=== PATIENT | male | born 1955 | race Caucasian/White ===

== ENCOUNTER 2019-12-24 11:56 | Emergency (ER) | payer BC ==
[~2019-12-24] VITALS: Ht 188 cm; Wt 79.4 kg
[~2019-12-24 11:56] MED LIST: AMLODIPINE BESY10 MG PO; ASPIRIN325 MG PO; COZAAR25 MG PO; DAILY MULTIPLE1 EACH PO; GLUCOSAMINE1000 MG PO; HYDROCHLOROTH12.5 MG PO; NIACIN500 M1 PO; OCULAR VITAMIN1 EACH PO; PRILOSEC20 MG PO; TRIAMTERENE-HC1 EAC2 PO
== END 2019-12-24 12:54 | disposition home or self-care (01) ==
LOC: ED 11:56
DX: Z00.00 Encounter for general adult medical examination without abnormal findings (principal); Z91.040 Latex allergy status; Z79.899 Other long term (current) drug therapy; Z79.82 Long term (current) use of aspirin
CPT/HCPCS: 99283

== ENCOUNTER 2020-02-16 10:40 | Day surgery (SDC) | payer BC ==
[~2020-02-16] VITALS: Ht 188 cm; Wt 78.0 kg
[~2020-02-16 10:40] MED LIST changes: +ALLOPURINOL300 MG PO
--- NOTE | 2020-02-16 12:52 | NUR ---
02/16/20 1252 Sheets,Tanya 1248 PT ARRIVED TO PACU ON 3L VIA MASK, RESP EVEN AND UNLABORED. VSS. PT DENIES PAIN AND NAUSEA, PT FALLS EASILY BACK TO SLEEP.
--- NOTE | 2020-02-22 10:23 | PATH ---
[facility] [address] [place], [place] [address] Signed SPECIMEN(S): A BONE MARROW - CORE SPECIMEN(S): B BONE MARROW - ASPIRATION SPECIMEN(S): C COMPREHENSIVE FLOW CYTOMETRY ONLY, BM EDTA ASP CLINICAL HISTORY: 64 year-old male with diagnosis of CLL, 01/21/2014. Developed pancytopenia on December 27, 2019. RX two doses of obinutuzumab with marked worsening of pancytopenia. C91.10 (chronic lymphocytic leukemia of B-cell type not having achieved remission) DIAGNOSIS SUMMARY: A. Peripheral blood, smear: - Mild normochromic, normocytic anemia. - Moderate leukopenia with absolute neutropenia and occasional atypical circulating lymphocytes. - Moderate thrombocytopenia. B. Bone marrow, aspirate, clot section, and core biopsy: - Chronic lymphocytic leukemia involving approximately 80% of marrow cellularity. - Hypercellular marrow (95%) with reduced trilineage hematopoiesis. - Adequate iron stores; no ring sideroblasts. - See Diagnostic Comment. DIAGNOSTIC COMMENT: The patient's history of chronic lymphocytic leukemia with worsening pancytopenia is noted. Evaluation of this bone marrow specimen demonstrates persistent chronic lymphocytic leukemia (CLL), involving approximately 80% of the cellularity of the marrow. No overt dysplasia or increase in blasts is identified. In addition, no evidence of large cell transformation is seen in the current biopsy material; however, clinical and radiologic correlation is recommended. CLL FISH and IGHV molecular studies are pending and results will be reported in an addendum. JCH:slh:C2NR PERIPHERAL BLOOD: HEMOGRAM ([facility], 02/16/2020): WBC 1.7 K/uL, RBC 4.38 M/uL, HGB 12.4 g/dL, HCT 37.3%, MCV 85.3 fL, MCH 28 pg, MCHC 33 g/dL, RDW 16.4%, PLT 95 K/uL. MANUAL DIFFERENTIAL COUNT (100 cells, performed by pathologist): Neutrophils 48%, lymphocytes 46%, monocytes 5%, basophils 1%. PATIENT NAME: NICOLE RAY PATHOLOGY DATE OF : 59 REPORT #: [id number] PHYSICIAN: BHAVESH BARAHONA PCP: CAMPBELL POLLARD MD REPORT IS CONFIDENTIAL AND NOT TO BE RELEASED WITHOUT AUTHORIZATION [facility] [address] [place], [place] [address] Signed The red cells are mildly decreased in number and are normochromic and normocytic. There is mild nonspecific anisopoikilocytosis with occasional ovalocytes and rare dacryocytes and microcytes seen. Polychromasia is not significantly increased. Leukocytes are reduced in number and include predominantly lymphocytes and neutrophils. Lymphocytes include a subset of intermediate-sized forms with coarsely clumped chromatin. Prolymphocytes are less than 5%. Neutrophils demonstrate normal granulation and lobation. A single circulating high N:C ratio cell with moderately fine chromatin, scant cytoplasm, and visible nucleoli is seen, which may possibly represent a rare blast. Platelets are moderately decreased in number and show normal morphology. BONE MARROW: BONE MARROW ASPIRATE: The bone marrow aspirate smears demonstrate abundant cellular spicules. Cellularity is composed predominantly of lymphocytes which range in size from small to large. The majority of lymphocytes are small to intermediate in size and show coarsely clumped chromatin with a scant rim of light blue cytoplasm. Maturing myeloids and erythroids are present in the background, although significantly reduced in number. The erythroids show generally round nuclear contours, although a few binucleate forms are present. Megakaryocytes are large and lobulated. Blasts are not increased. Scattered histiocytes are seen as well. MANUAL DIFFERENTIAL COUNT (200 cells): Blasts 0.5%, promyelocytes 0.5%, myelocytes 0.5%, erythroids 12.5%, lymphocytes 83.5%, monocytes 2.5%. BONE MARROW CORE BIOPSY AND ASPIRATE CLOT SECTION CELL BLOCK: The bone marrow core biopsy is markedly hypercellular for age (95%). Cellularity is composed predominantly of small to intermediate-sized lymphocytes with condensed chromatin, and scant cytoplasm. Scattered megakaryocytes are seen which show normal morphology. No significant clustering of megakaryocytes is appreciated. Maturing myeloids and erythroids are decreased in number. Sheets of large cells are not appreciated. Trabecular bone is normal. The bone marrow clot sections demonstrate several fragments of marrow that show similar findings as the core biopsy. SPECIAL STAINS (with adequate controls): - Iron stain (aspirate smear): Adequate iron stores; no ring sideroblasts identified. - Iron stain (block B1): Stainable iron is present; no ring sideroblasts identified. PATIENT NAME: NICOLE RAY PATHOLOGY DATE OF : 59 REPORT #: [id number] PHYSICIAN: BHAVESH PATHOLOGY PCP: CAMPBELL POLLARD MD REPORT IS CONFIDENTIAL AND NOT TO BE RELEASED WITHOUT AUTHORIZATION [address] [address] Signed IMMUNOHISTOCHEMICAL STAINS (block A1): - CD3: Highlights scattered small T-cells. - CD20: Some patchy weak staining seen, largely negative. - PAX5: Highlights numerous small to intermediate-sized B-cells, approximately 80% of marrow cellularity. - CD5: Coexpressed on lesional B-cells; also positive on T-cells. - Cyclin D1: Negative in cells of interest. - SOX-11: Negative in cells of interest. - CD23: Coexpressed on lesional B-cells. [facility] FLOW CYTOMETRY: Bone marrow, flow cytometry: - Abnormal kappa-restricted B-cell population expressing CD5. - No aberrant T-cell population detected. - No increase in blasts. - See Comment. COMMENT: Flow cytometry of this bone marrow specimen demonstrates an abnormal kappa-restricted B-cell population expressing CD5, dim CD19, dim to negative CD20, and CD23, while lacking expression of CD10 and FMC-7. These findings would support the diagnosis of a CD5 positive B-cell lymphoma, and the immunophenotype is compatible with chronic lymphocytic leukemia/small lymphocytic lymphoma (CLL/SLL). Full interpretation of these results requires correlation with morphologic and clinical findings. FLOW CYTOMETRY ANALYSIS: FLOW DIFFERENTIAL (% Total CD45 vs. SSC gating): Myeloid 6%; Lymphoid 88%; Monocyte 1%; Dim CD45/Blast: 0.4%. Cell Count: 6.2 x 10*3/uL. POPULATION ANALYSIS: BLASTS: Analysis of the dim CD45 gate demonstrates 0.4% myeloblasts by CD34/CD117. LYMPHOID CELLS: The lymphocyte gate comprises 88% of total events and includes 10% T-cells with a CD4:CD8 ratio of 2.9:1 and normal holbrook T-cell antigen expression. 88% of lymphocytes (77% of total events) are kappa-restricted B-cells expressing CD45 DIM, CD19 DIM, CD20 DIM-NEG, CD5 DIM, CD23 DIM-MOD, CD38 DIM (partial) and KAPPA DIM while negative for CD10 and FMC7. 62% of these CD5+/CD19+ B-cells co-express CD38. The remainders are NK-cells. PATIENT NAME: NICOLE RAY PATHOLOGY DATE OF : 59 REPORT #: [id number] PHYSICIAN: BHAVESH PATHOLOGY PCP: CAMPBELL POLLARD MD REPORT IS CONFIDENTIAL AND NOT TO BE RELEASED WITHOUT AUTHORIZATION [facility] [address] [place], [place] [address] Signed MYELOID CELLS: The myeloid population comprises 6% of the total events. No aberrant or immature immunophenotypic expression is detected. MONOCYTES: The monocyte population comprises 1% of the total events. Monocytes are not increased. No aberrant immunophenotypic expression is detected. PLASMA CELLS: A significant plasma cell population is not detected in the neg-dimCD45/CD38 screening gate. ANTIBODIES USED: KAPPA, LAMBDA, CD20, CD10, CD19, CD23, CD38, FMC7, CD16, CD56, CD8, CD5, CD2, CD4, CD7, CD3, CD14, CD33, CD13, HLADR, CD34, CD117, CD15, CD45: TOTAL ANTIBODIES USED: 24. DKW FINAL DIAGNOSIS PERFORMED BY: Shalini Man MD, Feb 18 2020 2:18PM FISH ANALYSIS: Pending, to be reported by addendum. MOLECULAR / PCR: Pending, to be reported by addendum. GROSS DESCRIPTION: Two specimens are received in two containers, labeled "DF." A. The specimen, labeled "DF, bone marrow core," is received in formalin and consists of a 1.0 x 0.2 x 0.2 cm, red-brown core of bone that is entirely submitted in (A1) for decalcification in Immunocal for an 1-1/2 hours. B. The specimen, labeled "DF, bone marrow clot," is received in formalin and consists of a 1.6 x 1.5 x 0.3 cm aggregate of red-brown clot material that is entirely submitted in (B1). AK (under the direct supervision of a pathologist) The Gross Description was prepared using a voice recognition system. The report was reviewed for accuracy; however, sound-alike word errors, addition and/or deletions may occur. If there is any question about this report, please contact Client Services. ADDITIONAL NOTES: Immunohistochemical and/or in situ hybridization studies were performed on this case with the appropriate positive controls that react as expected. This test was developed and its performance characteristics determined by [facility]. It has not been cleared or approved by the U.S. Food and Drug Administration. The FDA has determined that such clearance or approval is not PATIENT NAME: NICOLE RAY PATHOLOGY DATE OF : 59 REPORT #: [id number] PHYSICIAN: BHAVESH BARAHONA PCP: CAMPBELL POLLARD MD REPORT IS CONFIDENTIAL AND NOT TO BE RELEASED WITHOUT AUTHORIZATION [address] [address] Signed necessary. This test is used for clinical purposes. It should not be regarded as investigational or for research. [facility] is certified under the Clinical Laboratory Improvement Amendments of 1988 (CLIA) as qualified to perform high complexity clinical laboratory testing. In this case, certain antibodies were performed by both immunohistochemistry and flow cytometry analysis because flow cytometry analysis did not fully explain all the light microscopic findings. Immunohistochemistry aided in the analysis. Both methods are deemed medically necessary in this case. This test was developed and its performance characteristics determined by [facility]. It has not been cleared or approved by the US Food and Drug Administration. The FDA does not require this test to go through premarket FDA review. This test is used for clinical purposes. It should not be regarded as investigational or for research. This laboratory is certified under the Clinical Laboratory Improvement Amendments (CLIA) as qualified to perform high complexity clinical laboratory testing. PERFORMING LABORATORY: The professional interpretation was performed by [facility], [address] [place] [address] (Sybase Developer: Juan Mclaughlin D.O.; CLIA#: [id number]). Professional interpretation [place] [address] ([employer] Developer: Juan Mclaughlin D.O.; CLIA#: [id number]). IMAGES: [id number]: [id number] A: [id number] Diagnostician: Shalini Man MD Pathologist Electronically Signed 02/22/2020 Copies: ~ PATIENT NAME: NICOLE RAY PATHOLOGY DATE OF : 59 REPORT #: [id number] PHYSICIAN: BHAVESH PATHOLOGY PCP: CAMPBELL POLLARD MD REPORT IS CONFIDENTIAL AND NOT TO BE RELEASED WITHOUT AUTHORIZATION
== END 2020-02-16 14:09 | disposition home or self-care (01) ==
LOC: OPS 10:40 → DS 10:40 → OPS 12:00
PROVIDERS: Specialist
PROC: 079T3ZX Drainage of Bone Marrow, Percutaneous Approach, Diagnostic (ICD-10-PCS; 2020-02-16)
PROC: 07DR3ZX Extraction of Iliac Bone Marrow, Percutaneous Approach, Diagnostic (ICD-10-PCS; principal; 2020-02-16 12:00)
DX: C91.10 Chronic lymphocytic leukemia of B-cell type not having achieved remission (principal); D61.818 Other pancytopenia; I10 Essential (primary) hypertension; K21.9 Gastro-esophageal reflux disease without esophagitis; F41.9 Anxiety disorder, unspecified; Z90.49 Acquired absence of other specified parts of digestive tract; Z79.899 Other long term (current) drug therapy; Z79.82 Long term (current) use of aspirin; Z91.040 Latex allergy status
CPT/HCPCS: 85025; 99153; G0500; J2250; J3010; J7121

== ENCOUNTER 2020-03-18 08:47 | Inpatient (IN) | payer BC, OTHER ==
[~2020-03-18] VITALS: Ht 188 cm; Wt 78.0 kg
[~2020-03-18 08:47] MED LIST changes: +PRILOSEC OTC20 MG PO; -PRILOSEC20 MG PO; +VENCLEXTA100 MG PO
[2020-03-18] MEDS ORDERED: ACYCLOVIR800 MG PO (09:15)
[2020-03-18] MEDS ORDERED: CIPROFLOXACIN500 MG PO (09:16)
--- NOTE | 2020-03-18 12:30 | NUR ---
PT ARRIVED TO FLOOR. PT ON 2L NC AND SATING WELL ON THAT. PT HAS NO COMPLAINTS AT THIS TIME. PT COMPLIANT WITH CARE
--- NOTE | 2020-03-18 14:00 | NUR ---
IN PTS ROOM HANGING ANTIBIOTICS AND ATTEMPTED TO START ANOTHER IV, THIS RN MISED TWICE, BOTH ON THE PTS RIGHT ARM. PT TOLERATED WELL AND CONSENTED TO ANOTHER IV DUE TO THE EXISTING IV BEING LOCATED IN THE LEFT AC WHERE IT MAKES THE IV PUMP BEEP EVERY TIME HE BENDS HIS ARM
--- NOTE | 2020-03-18 15:15 | NUR ---
IN PTS ROOM TO REFILL PTS WATER CUP. PT ABLE TO PEE AND PROVIDE URINE SAMPLE AT THSI TIME TIME
--- NOTE | 2020-03-18 15:50 | NUR ---
PT APPEARS TO BE RESTING AT THIS TIME. RESPIRATIONS SUSTAINED FROM 25-35. MD AWARE OF RESPIRATORY RATE. PT DOES NOT APPEAR TO BE IN ANY DISTRESS, GOOD WAVE FORM NOTED ON TELEMETRY AT THIS TIME
--- NOTE | 2020-03-18 16:30 | NUR ---
ASSESSMENT DONE. PATIENT C/O FEELING SHORT OF BREATH. WORK OF BREATHING, SLIGHT STERNAL RETRACTIONS. CRACKLES NOTED IN RIGHT LOWER LOBE.
--- NOTE | 2020-03-18 17:00 | NUR ---
SECOND IV SIGHT STARTED BY SUPERVISIOR. IV ANTIBOTIC , IVF HUNG.
--- NOTE | 2020-03-18 18:08 | NUR ---
SAT UP IN BED TO TAKE SMALL AMOUNT OF DINNER. RT NOTIFIED FOR NEB TREATMENT.
--- NOTE | 2020-03-18 18:30 | NUR ---
DR. FLEMING UPDATED ON PT CONDITION. IS AWARE IF RESP RATE, WORK OF BREATHING. NO FUTHER ORDERS AT THIS TIME.
--- NOTE | 2020-03-18 19:05 | NUR ---
O2 SAT 88-92 WILL CONTINUE TO MONITOR. REPORT TO NEXT SHIFT. PATIENT HAS BEEN VERY TALKATIVE.
--- NOTE | 2020-03-18 20:12 | NUR ---
IN TO ASSESS PT, IS AWAKE AND ALERT. SATS 88-91 ON 3L NC, INC TO 4L. RR 24-30, SL LABORED. ABLE TO SPEAK IN COMPLETE SENTENCES. PT WILL NOTE IF SATS DEC ON MONITOR AND TAKE DEEP BREATHS.
--- NOTE | 2020-03-18 22:20 | NUR ---
RESTING. HAS HAD GOOD RESPONSE TO LASIX. 02 SATS 92-94% ON 4L NC AND RR26.
--- NOTE | 2020-03-18 23:22 | NUR ---
PT AWAKENED WHEN ABX HUNG. NO C/O.
--- NOTE | 2020-03-19 01:02 | NUR ---
SLEEPING OFF AND ON. OCC COUGH.
--- NOTE | 2020-03-19 02:21 | NUR ---
pt had an episode of coughing, non productive. SPO2 decreased to 86% on 4L. Increased O2-5L, after a few minutes pt SPO2 increased to 95-98%. O2 decreased to 4L. Spo2 currenlty 96% on 4L.
--- NOTE | 2020-03-19 03:08 | NUR ---
AWAKENED BY IV ALARM. T 100.3, GIVEN 650MG TYLENOL FOR TEMP AND GENERAL DISCOMFORT.
--- NOTE | 2020-03-19 05:09 | NUR ---
AWAKE COUGHING, GIVEN 5ML ROBITUSSIN.
--- NOTE | 2020-03-19 06:13 | NUR ---
SLEEPING OFF AND ON. COUGHING LESS SINCE WS GIVEN ROBITUSSIN.
--- NOTE | 2020-03-19 07:30 | NUR ---
REPORT RECIEVED. IS RESTING IN BED.
--- NOTE | 2020-03-19 07:50 | NUR ---
HAVING COUGHING SPELL, O2 SAT DOWN TO 84. OXYMASK AT 6 L APPLIED. ASSESSMENT DONE. TALKED WITH PATIENT ABOUT POC FOR DAY, INDICATES UNDERSTANDING.
--- NOTE | 2020-03-19 09:00 | NUR ---
BREAKFAST HELD AT THIS TIME PATIENT CHILLING, TEMP-99.6. REMAINS ON OXYMASK NOW AT [address] WARM BLANKETS APPLIED. DR. FLEMING HERE AND AWARE. ROUTINE MEDS GIVEN WELL TYLENOL 650 MG AND COUGH MEDICATION.
[2020-03-19] MEDS ORDERED: GAZYVA1000 MG/40 IV (09:45)
--- NOTE | 2020-03-19 09:50 | NUR ---
MED REC COMPLETE
--- NOTE | 2020-03-19 10:30 | NUR ---
SAT AT BED SIDE TO VOID. TOLERATED MOVEMENT WELL. THEN TO BED. SAT UP IN BED TO TAKE BREAKFAST. NOT CHILLING NOW. O2 VIA OXYMASK AT 4 L. WHEN EATING O2 AT 5 NC NC PLACED. O2 SATS-95. PATIENT REQUESTING OXYMASK FOR COMFORT.
--- NOTE | 2020-03-19 12:00 | NUR ---
ASSESSMENT DONE. WHEN SITTNG UP AT BEDSIDE, SPONGE BATH GIVEN, TOLERATED WELL. CONTINUES TO HAVE DRY NONPRODUCTIVE COUGH. VEERY TALKATIVE. TEMP 99.3 TO 99.6 TODAY. PATIENT IS SENSITIVE TO THE TEMP IN ROOM. IV PATENT. DENIES NAUSEA.
--- NOTE | 2020-03-19 12:35 | NUR ---
PT BECAME RESTLESS. WHEN THIS RN ENTERED NOTICED PT HAD BEEN INCONTIENT OF URINE. PT CLEANED UP CHANGED ATTENDS AND SHERWIN PAD. PT THEN STATED THAT HE NEEDED TO PEE. MARTÍNEZ RN ASSISTED PT TO USE URINAL AT THIS TIME. PT THEN COVERED UP, PT THEN BEGAN TRYING TO TAKE OFF SHEETS AGAIN BECOMING MORE AGITATED AND TRYING TO PUT HIS LEGS OVER THE BED RAILS. THIS RN GAVE PT 2MG PRN ATIVAN. PT COVERED UP AND APPEARS TO BE GOING BACK TO SLEEP, RESPIRATIONS NOTED AND O2 SATS HOLDING GREATER THAN 90%
--- NOTE | 2020-03-19 13:44 | NUR ---
PO COUGH MEDICATION GIVEN.
--- NOTE | 2020-03-19 14:00 | NUR ---
SITTING UP IN BED TO EAT LATE LUNCH. CHILLING AT TIMES. TEMP REMAINS 99.3 TO 99.6.
--- NOTE | 2020-03-19 15:30 | NUR ---
TYLENOL GIVEN FOR OVERALL COMFORT.
--- NOTE | 2020-03-19 16:00 | NUR ---
ASSESSMENT DONE. TEMP 101.2.
--- NOTE | 2020-03-19 16:20 | NUR ---
DR FLEMING UPDATED ON FEVER, BLOOD CULTURES ORDERED.
--- NOTE | 2020-03-19 18:00 | NUR ---
ATE SNACK. NO CHANGES. IVF PATENT.
--- NOTE | 2020-03-19 18:20 | NUR ---
COUGH MEDICATION GIVEN.
--- NOTE | 2020-03-19 21:14 | NUR ---
IN FOR ASSESSMENT. PT UP TO BATHROOM TO HAVE BOWEL MOVEMENT. KEPT [address], LUMA BEING UP WELL. TALKATIVE.
--- NOTE | 2020-03-19 22:16 | NUR ---
PT USES IS ON OWN. READY FOR SLEEP, GIVEN ROBITUSSIN PER REQUEST FOR COUGH.
--- NOTE | 2020-03-20 00:45 | NUR ---
SAT AT BEDSIDE TO VOID. RR DOES INC WITH EXERTION, COUGH ALSO INC WITH EXERTION. GIVEN COOL CLOTH FOR EYES. READY TO GO BACK TO SLEEP.
--- NOTE | 2020-03-20 02:23 | NUR ---
AWAKENED BY IV PUMP. STATES HAS BEEN SLEEEPING. GIVEN 5ML ROBITUSSIN FOR DRY COUGH.
--- NOTE | 2020-03-20 03:49 | NUR ---
TOOK OXYMASK OFF AND SATS SEP TO , REPLACED. CONT TO HAVE CRACKLES ABOUT 1/2 TO 2/3 UP ON R AND 1/2 UP L. CONT TO HAVE DRY COUGH. STATES NOT REALLY NAUSEATED BUT DOESN'T FEEL RIGHT. GIVEN CRACKERS.
--- NOTE | 2020-03-20 06:37 | NUR ---
SLEEPING OFF AND ON. REMIANS ON 5L OXYMASK.
--- NOTE | 2020-03-20 07:30 | NUR ---
REPORT RECIEVED. PATIENT IS RESTFUL IN BED.
--- NOTE | 2020-03-20 08:10 | NUR ---
AMBULATED TO BR TO HAVE BM, TO [facility] FOR BREAKFAST. DR. FLEMING HERE TO SEE PATIENT.
--- NOTE | 2020-03-20 09:00 | NUR ---
TOOK BREAKFAST WELL. VOIDING TO URINAL. LASIX 20 MG IV GIVEN EARLIER. TOOK PO MEDICATIONS W/O PROBLEMS.
--- NOTE | 2020-03-20 09:45 | NUR ---
SPOKE WITH PATIENT IN ROOM. PATIENT UP IN CHAIR. STATES HE HAS BEEN WALKING TO BATHROOM, STILL FEELS WEAK, BUT BETTER. HE PLANS TO RETURN HOME AT DISCHARGE. HE CAN GO STAY WITH FRIENDS IF NEEDED, BUT OTHERWISE LIVES ALONE. DENIES USING ANY DME NORMALLY. HE IS EMPLOYED, ALTHOUGH SINCE PANDEMIC HAS BEEN STAYING HOME DUE TO HIS CHRONIC MEDICAL ISSUES AND HAS JUST STARTED WORKING FROM HOME VIA COMPUTER. HE DENIES ANY PROBLEMS AFFORDING MEDICATIONS, FOOD OR UTILITIES. HE DRIVES AND FEELS SAFE TO RETURN HOME IF HE IS A "LITTLE STRONGER". CM WILL CONTINUE TO FOLLOW.
--- NOTE | 2020-03-20 11:44 | NUR ---
REMAINS IN CHAIR. DENEIS PROBLEMS. WATCHING TV. REMAINS ON O2 AT 2 L NC.
--- NOTE | 2020-03-20 12:00 | NUR ---
BACK TO BED. LESS SHORT OF BREATH WITH EXERTION TODAY.
--- NOTE | 2020-03-20 14:00 | NUR ---
LATE LUNCH ORDERED.
--- NOTE | 2020-03-20 14:01 | NUR ---
I AM FAMILIAR WITH THIS PT AND HE REQUESTED A VISIT. HE IS ALERT, ORIENTED AND SHARED ABOUT EVENTS THAT LED TO THIS ADMISSION. STATED HE IS FEELING MUCH BETTER, AND SLEPT FAIRLY WELL. IV ALARMS WENT OFF SEVERAL TIMES DURING VISIT- SEEMED TO ANNOY PT SOME. HAD GOOD DEBRIEFING MOMENT, PT REQUESTED PRAYER.
--- NOTE | 2020-03-20 14:57 | NUR ---
BACK TO BED AFTER AMBULATING TO BR TO HAVE ANOTHER LIQ STOOL. BACK/FACE WASHED. REFUSING LUNCH AT THIS TIME.
--- NOTE | 2020-03-20 18:17 | NUR ---
SITTING UP IN BED TO TAKE MILKSHAKE. STATES HE FEELS TIRED. LESS SHORT OF BREATH TODAY.
--- NOTE | 2020-03-20 19:30 | NUR ---
SATS DEC TO 88-89%, T 99.5 02 IN TO 3L OXYMASK PER MARIEL DURAN.
--- NOTE | 2020-03-20 21:05 | NUR ---
HAS BEEN RESTING SITTING UP IN BED. STATES DOESN'T FEEL IF HAVING GOOD AN EVENING MORINING IE TEMP GOING UP, EXPLAINED TEMPS FREQ GO UP THIS TIME OF DAY DUE TO CIRCADIAN RHYTHM AND ALSO CURRENT ILLNESS. UNDERSTANDS. TALKED ABOUT GROUPING MEDS AND CARE TO MAXIMIZE SLEEP. WILL GIVEN TYLEONOL AND ROBITUSSIN ABOUT 2200 FOR REST.
--- NOTE | 2020-03-20 21:57 | NUR ---
PT'S COUGH INCREASES WITH ACTIVITY. GIVEN ROBITUSSIN 5MG PO AND 650MG TYLENOL FOR GEN COMFORT. GETTING READY FOR SLEEP.
--- NOTE | 2020-03-20 23:21 | NUR ---
PT AWAKENED WITH NIGHT SWEAT, T NOW 98.4. VOIDED AND HAD INC COUGHING WITH MOVEMENT. SATS HAD SEP TO , 02 MASK OFF, BACK TO 90'S WITHIN 1-MIN OF REPLACEMENT.
--- NOTE | 2020-03-21 03:12 | NUR ---
SLEEPING OFF AND ON. HAVING EPISODES OF DRY COUGH. GIVEN GOBITUSSIN.
--- NOTE | 2020-03-21 05:15 | NUR ---
LAB IN TO DRAW BLOOD. NO CHANGE.
--- NOTE | 2020-03-21 06:22 | NUR ---
SLEEPING AT THIS TIME. RR 28-30 SAT 95% 3L OXYMASK.
--- NOTE | 2020-03-21 07:30 | NUR ---
REPORT RECIEVED. PATIENT STATES HE HAD A LONG NIGHT.
--- NOTE | 2020-03-21 08:00 | NUR ---
ASSESSMENT DONE. BREAKFAST ORDERED. DR. FLEMING HERE TO SEE PATIENT. PATIENT WILL BE TRANSFERRED TO MEDICAL FLOOR TODAY. TALKED WITH PATIENT ABOUT POC FOR DAY. IS UNDERSTANDING. IVF PATENT. O2 FROM OXYMASK AT 3 L TO NC AT L PER PATIENT R/O.
--- NOTE | 2020-03-21 09:30 | NUR ---
TOOK BREAKFAST WELL. IS STABLE ON FEET AMBULATED TO BR.
--- NOTE | 2020-03-21 09:40 | NUR ---
LARGE GREENISH LIQUID STOOL NOTED. PATIENT WAS CLEANING, BLOOD NOTED. DR. FLEMING NOTIFIED. NO EXTERNAL HEMORRHOID NOTED. DR. FLEMING OKAY WITH TRANSFER TO MEDICAL FLOOR.
--- NOTE | 2020-03-21 10:31 | NUR ---
NURSING SUPERVISIOR HERE TO PLACE 2 NEW IV SITES. IVF CONTINUE TO INFUSE AT 50 ML/HR.
--- NOTE | 2020-03-21 11:59 | NUR ---
NAPPING. NO DISTRESS NOTED. O2 VIA OXYMASK AT 3 L ON , PATIENT PREFERS OXYMASK TO NC FOR COMFORT. BOTH NC AT 3 L AND OXYMASK AT 3L, MAINTAIN SAT 91-96.
--- NOTE | 2020-03-21 13:30 | NUR ---
TOOK 80% OF LUNCH. HAS BEEN RESTFUL TODAY.
--- NOTE | 2020-03-21 14:15 | NUR ---
HAS BEEN VOIDING QS AMOUNT TOF URINE TO URINAL. RESTFUL.
--- NOTE | 2020-03-21 14:30 | NUR ---
Spoke with Bryan. He states he feels worse today than yesterday. C/o severe fatigue. States coughing spells cause fatigue. Remains on 02. Lives alone. States he is now where ready to go home. Let him know we are not at that point yet. He will go out to the floor today.
--- NOTE | 2020-03-21 15:30 | NUR ---
REPORT TO MED SURG.
--- NOTE | 2020-03-21 16:05 | NUR ---
to med-surg via chair.
--- NOTE | 2020-03-21 16:09 | NUR ---
PT ARRIVES VIA CHAIR FROM CCU. PT IS ORIENTED, ALERT, JOVIAL ABOUT TRANSFER. PT IS RECEIVING 3L O2 VIA OXYMASK. VITAL SIGNS STABLE, NO NOTABLE DISTRESS, PT ENCOURAGED TO USE CALL LIGHT.
--- NOTE | 2020-03-21 18:36 | NUR ---
PATIENT IN CHAIR WATCHING TV. WARM BLANKET GIVEN. CALL LIGHT IN REACH. NO FURTHER NEEDS AT THIS TIME.
--- NOTE | 2020-03-21 19:39 | NUR ---
REPORT RECEIVED FROM DAY SHIFT RN. PT SITTING IN RECLINER, ALERT AND ORIENTED. URINAL EMPTIED. O2 3L/NC IN PLACE. DENIES NEEDS AT THIS TIME. WHITE BOARD UPDATED. CALL LIGHT IN REACH.
--- NOTE | 2020-03-21 21:40 | NUR ---
EVENING ASSESSMENT COMPLETE. SCHEDULED MEDS ADMINISTERED. IV ABX INFUSING. PRN GIVEN FOR COUGH. PT UP TO BR WITH SBA TO DO PM CARES. REPORT HE IS FEELING LESS STEADY ON HIS FEET THIS EVENING. PT USING IS. O2 3L/NC IN PLACE, SPO2 92%. DENIES SOB. WARM BLANKET AND FRESH WATER PROVIDED.
--- NOTE | 2020-03-22 00:10 | NUR ---
PT RESTING IN BED WITH EYES CLOSED, NAD.
--- NOTE | 2020-03-22 01:56 | NUR ---
IV ABX INFUSING. PRN GIVEN FOR COUGH. SPO2 82-88% ON 3L/NC. FOR COMFORT PT WANTED TO SWITCH TO OXYMASK. O2 TITRATED TO 9L, SPO2 91%. HR LOW 90'S. RR 22.
--- NOTE | 2020-03-22 02:27 | NUR ---
OXYGEN TITRATED TO 7L/OXYMASK. SPO2 94%, HR 93. RR 22.
--- NOTE | 2020-03-22 03:41 | NUR ---
PT RESTING IN BED WITH EYES CLOSED. SPO2 93% ON 5L/OXYMASK. HR 90. RR 20.
--- NOTE | 2020-03-22 04:20 | NUR ---
PT TRANSITIONED TO NC PER PT REQUEST. O2 5L. SPO2 92%. RR EVEN AND UNLABORED.
--- NOTE | 2020-03-22 06:06 | NUR ---
PT SLEPT FAIR. ALERT AND ORIENTED. USES CALL LIGHT APPROPRIATELY. SBA. AFEBRILE. TITRATING OXYGEN TO KEEP O2 SATS >90%. PT LIKES TO SWITCH BETWEEN OXYMASK AND NC FOR COMFORT. CURRENTLY ON 4L/NC. NEUTROPENIC PRECAUTIONS/DIET. IV ABX. PO ANTIVIRALS. ONE LOOSE STOOL THIS SHIFT, NO BLOOD NOTED. DENIES PAIN OR NAUSEA.
--- NOTE | 2020-03-22 07:06 | NUR ---
RECIEVED REPORT FROM RENEE LEE. INTRODUCED SELF TO PATIENT, DENIES NEEDS AT THIS TIME. CALL LIGHT IN REACH, BED RAILS UP X2.
--- NOTE | 2020-03-22 09:01 | NUR ---
ASSESSMENT COMPLETED. NO COMPLAINTS OF PAIN AT THIS TIME. CALL LIGHT IN REACH. BED RAILS UP X2. RESP CURRENTLY EVEN AND UNLABORED, REMAINS ON O2 PER NC. O2 SATS 88%, PATIENT REQUEST INCREASE OF OXYGEN FOR COMFORT. O2 INCREASED TO 5L/MIN PER NC AT THIS TIME. DENIES OTHER NEEDS AT THIS TIME.
--- NOTE | 2020-03-22 09:55 | NUR ---
PATIENT RESTING IN BED, EYES CLOSED. VITALS AND I&OS DONE AND CHARTED. ICE WATER REFRESHED. PATIENT PLANS ON WALKING THE [place] SOON AND THEN WOULD LIKE TO SHOWER. CALL LIGHT IN REACH. NO OTHER NEEDS.
--- NOTE | 2020-03-22 10:08 | NUR ---
PT IS ALERT, ORIENTED AND WORKING TO STAY POSITIVE.WAITING ON BLOOD CULTURE RESULTS. PT STATES STAFF REINFORCE MOVING TO M/S IS POSITIVE, AND HE IS NOW COUGHING UP FLEM-RN'S ENCOURAGE HIM WITH THIS WELL. PT ADMITS THAT 2020 HAS BEEN HARD FOR HIM, REQUESTED PRAYER
--- NOTE | 2020-03-22 10:15 | NUR ---
AMBULATED APPROXIMATELY 400 FEET IN HALLWAY WITH THIS NURSE, STEADY GAIT NOTED WITH AMBULATION. OSYGEN ON 3L/MIN PER NC WHILE AMBULATING AND O2 SATS 91% WHILE AMBULATING. RETURNS TO BED WITH 3L/MIN PER NC ON. IV VANCOMYCIN CONTINUES INFUSING AT THIS TIME. DENIES OTHER NEEDS. CALL LIGHT IN REACH, BED RAILS UP X2.
--- NOTE | 2020-03-22 11:32 | NUR ---
Checked with patient to see if he would like toshower, states he would like to wait and continue napping. This UTILITY DRIVER emptied patients urinal. Call light in reach
--- NOTE | 2020-03-22 11:49 | NUR ---
REQUEST TO SWITCH OXYGEN TO OXYMASK. PLACED ON OXYMASK AT 3L/MIN PER REQUEST. DENIES OTHER NEEDS RIGHT NOW.
--- NOTE | 2020-03-22 13:52 | NUR ---
O2 REMAINS ON AT 3L/MIN PER NC. CONTINUOUS PULSE OX DC'D PER DR. SNYDER. PATIENT DENIES OTHER NEEDS. STATES HE WOULD LIKE TO REST FOR A WHILE AND SHOWER AROUND 1500. CALL LIGHT IN REACH, BED RAILS UP X2. ASSESSMENT COMPLETED, NO CHANGES FROM PREVIOUS ASSESSMENT.
--- NOTE | 2020-03-22 14:28 | NUR ---
PATIENT RESTING IN BED, EYES CLOSED. WOKE FOR VITALS AND TO SPEAK TO DIETARY(WILL ORDER SUPPER LATER) REQUESTED THERMOSTAT BE TURNED DOWN A NOTCH. VITALS AND I&OS CHARTED. CALL LIGHT IN REACH. PATIENT RESTING WITH EYES CLOSED AGAIN.
--- NOTE | 2020-03-22 14:35 | NUR ---
REVCEIVED REPORT FROM SHANIA DURAN. PT APPEARS TO BE RESTING, BUT AWAKES WHEN THIS RN SAYS HIS NAME. PT IS REQUESTING A SHOWER AT SOME POINT THIS AFTERNOON
--- NOTE | 2020-03-22 15:06 | NUR ---
PER PT REQUEST THIS RN PROVIDED PT WITH ROBITUSSIN FOR PTS COUGH.
--- NOTE | 2020-03-22 16:00 | NUR ---
1PA PATIENT TO BATHROOM USING FWW. THIS PRACTICAL NURSING INSTRUCTOR WRAPPED BOTH IV SITES FOR PATIENT TO SHOWER. SHOWERIGN INDEPENDENTLY, WILL CALL IF ASSISTANCE IS NEEDED. O2 WAS BUMPED UP TO 4L FOR SHOWER. LINENS CHANGED, GARBAGE EMPTIED, ROOM TIDIED.
--- NOTE | 2020-03-22 16:18 | NUR ---
Spoke rosana Salazar. He states he is really not feeling well. He continues with [address] Has questions regarding notary and completion of will which includes medical directive. Informed staff are unable to sign as witnesses. He will need to complete this outside of the hospital. Discussed 02 and may need to go home with 02. He states he is able to pay, if he does not qualify for home o2.
--- NOTE | 2020-03-22 17:16 | NUR ---
PATIENT SITTING UP IN CHAIR, ORDERED DINNER. HAPPY TO BE OFF NUTROPENIC DIET. VITALS AND I&OS DONE AND CHARTED. CALL LIGHT IN REACH. NO OTHER NEEDS.
--- NOTE | 2020-03-22 17:48 | NUR ---
PT PUT CARDIAC SURGEON LIGHT TO ALERT THIS RN THAT HE WANTED TO HAVE THIS RN TO LOOK AT HIS RIGH IV SITE. WHEN THIS RN INSPECTED SITE THIS RN DID NOT NOTICE ANY PUFFINESS OR REDNESS AT INSERTION SITE. THIS RN FLUSHED IV AND NO BLEB SHOWED AND FLUSHED WELL. DISCUSSED WITH PT TO NOTIFY THIS RN IF IT STARTS TO GET RED. THIS RN SLOWED DOWN THE RATE OF VANCO AT THIS TIME
--- NOTE | 2020-03-22 19:15 | NUR ---
SHIFT REPORT RECIEVED FROM DEANNE DURAN. PT RESTING IN BED. NC@ 2L, PT DENIES SOB. NO OTHER NEEDS AT THIS TIME. CALL LIGHT IN REACH.
--- NOTE | 2020-03-22 22:32 | NUR ---
ASSESSMENT, VS AND I&O COMPLETED. LUNGS DIMINISHED IN LOWER LOBES, CLEAR IN UPPER LOBES. IV WNL, CDI, FLUSHED WELL. SCHEDULED MEDS PROVIDED. SPO2 88%, NC MOVED TO 4L FROM 3L. BOWEL TONES ACTIVE. NO EDEMA NOTED. NO OTHER NEEDS AT THIS TIME. CALL LIGHT IN REACH.
--- NOTE | 2020-03-22 23:09 | NUR ---
PT ORAL TEMP 99.9f, PRN FEVER MED PROVIDED. ICE WATER PROVIDED. PT EDUCATED ON USE OF I.S., PT DECLINES TO USE "IT MAKES ME COUGH", "NOT UP TO IT". IV MEDS INFUSING PER ORDER. NO OTHER NEEDS. CALL LIGHT IN REACH.
--- NOTE | 2020-03-23 01:20 | NUR ---
SCHEDULED MED PROVIDED. NO OTHER NEEDS. PT RESTING IN BED, EYES CLOSED. NC@4L. CALL LIGHT IN REACH.
--- NOTE | 2020-03-23 03:00 | NUR ---
PT RESTING IN BED, EYES CLOSED. RR EVEN, UNLABORED. SKIN WPD. PT WAKES WHEN RN ENTERS ROOM. DECLINES VITALS TO CHECK TEMP. NC @ 3L. NO OTHER NEEDS. CALL LIGHT IN REACH.
--- NOTE | 2020-03-23 06:13 | NUR ---
SCHEDULED MED PROVIDED. ASSESSMENT, VS AND I&O COMPLETED. PT APPEARS ANXIOUS. SPO2 88% ON 3L, NC MOVED TO 4L THEN 5L TO GET TO 91%. LUNGS CLEAR IN UPPER LOBES AND DIMINISHED IN LOWER LOBES. ORAL TEMP 100.9f, PRN FEVER MED PROVIDED. PT OFFERED BREATHING TX BY RT, DECLINES SAYING "IT DOESN'T DO ANYTHING." IV MEDS INFUSING PER ORDER. IV WNL, FLUSHED WELL. HOB ELEVATED. PT PLACED ON OXYMASK AT 5L, SPO2 MAINTAINS At 91%. RN WILL NOTIFY RT OF MASK AND O2 CHANGES, LUNGS SOUNDS. NO OTHER NEEDS. CALL LIGHT IN REACH.
--- NOTE | 2020-03-23 07:30 | NUR ---
BEDSIDE REPORT.. PT RESTING IN BED EYES CLOSED, ON OXYMASK. RR EVEN, NO DISTRESS NOTED. HE APPEARS TO BE SLEEPING.
--- NOTE | 2020-03-23 08:49 | NUR ---
PT UP TO RECLINER USING I.S., AM MED PASS COMPLETE.
--- NOTE | 2020-03-23 10:10 | NUR ---
In and spoke with Martin. 02 qualifier was completed this am. He plans on discharging and then going to a [facility] appt with Dr. Avila prior to going home. Discussed 02 and I will send the rx to [facility]. Updated most insurance will pay for 02 if diagnoses is pneumonia. Undstanding stated. I will write his cell phone number on fax sheet for [facility] to contact for payment and set up a delivery time as pt lives alone. He is in agreement with this. Chart notes, face sheet, 02 qualifier faxed to [facility]. Called and updated Milton to pt's schedule. She suggests pt come to their office. Updated pt has CLL and should not go anywhere but to 's appts. She will call pt.
--- NOTE | 2020-03-23 11:15 | NUR ---
VANCO INFUSION COMPLETE, PT S/L, PT REQUEST TO REST IN BED FOR A WHILE SBA PT TRANSFERED FROM RECLINER TO BED.
--- NOTE | 2020-03-23 11:25 | NUR ---
NOTIFIED OF URINE OUT PUT DECREASED OVER THE PAST 4 HOURS FROM OVER A 1L AT 0600 TO 200ML AT 1000.
--- NOTE | 2020-03-23 11:35 | NUR ---
THIS MORNING SET PATIENT UP FOR A SHOWER. NOW HE IS DECIDING IF HE PLANS ON STAYING OR NOT TO SEE IF HE WILL TAKE A SHOWER OR NOT. PATIENT IS USING HIS IS MACHINE. PATIENT WAS SITTING UP IN HIS CHAIR BUT NOW HE IS IN BED.
--- NOTE | 2020-03-23 13:30 | NUR ---
spoke with Martin, he has been speaking with [facility]. Has decided to not go home today as he ran a fever last night and has some sob.
--- NOTE | 2020-03-23 14:17 | NUR ---
PT SITTING IN CHAIR-ALERT AND ORIENTED. RENEE NEAL IN CHECKING PTS' TEMP AND PT INFERRED THAT IT HAD BEEN UP AND DOWN MOST OF NIGHT. VAL ALSO MENTIONED THAT DR SNYDER WAS COMING IN SHORTLY. HAD GOOD INTERACTION WITH PT, ADMITTED THE DIFFICULTY HE IS HAVING FEELING VERY ALONE. ACCEPTING HE HAS NO FAMILY NEAR, AND THAT HE HAS ALWAYS FELT HE COULD CARE FOR HIMSELF. DIFFICULT FOR HIM TO FEEL DEPENDANT. HAD POSITIVE DEBRIEFING, PT REQUESTED PRAYER AND ACCEPTED N.PAPER.
--- NOTE | 2020-03-23 15:58 | NUR ---
ASSESSMENT COMPLETED. IV SITE INFILTRATED, NEW IV STARTED. STATES HE WOULD LIKE TO WALK IN [place] THIS AFTERNOON. DENIES OTHER NEEDS AT THIS TIME. CALL LIGHT IN REACH, BED RAILS UP X2.
--- NOTE | 2020-03-23 19:33 | NUR ---
Up to br, tolareated well, back to chair, legs elevated, O2 2L NC in place, no sob. 2 sl L arm. Alyssa with assessment. no c/o adverse reaction to abx, tolerating fluids well
--- NOTE | 2020-03-23 22:08 | NUR ---
c/o 10/22 generalized pain, medicated with Tylenol 650mg po. Up in bed watchingt v, moist productive cough of white clear phlegm
--- NOTE | 2020-03-23 22:45 | NUR ---
PER PT REQUEST I UNPLUGGED HIS PHONE FROM THE WALL AND GAVE IT TO HIM. HE NEEDS NOTHING MORE AT THIS TIME.
--- NOTE | 2020-03-24 00:11 | NUR ---
RESATING, NO C/O ADVERSER EACTION TO ABX, FLUIDS AND CALL LIGHT AT [facility]
--- NOTE | 2020-03-24 03:31 | NUR ---
C/O COUGHING, MEDICATED WITH COUGH SYRUP, HOB ELEVATED, O2 2L NC IN PLACE VIA OXYMASK AT HIS REQUESTS AT THIS TIME. TOLERATING FLUIDS WELL, VOIDING LARGE AMOUNTS OF YELLOW URINE USING URINAL. NO C/O APIN
--- NOTE | 2020-03-24 04:51 | NUR ---
PT HAS SLEPT OFF AND ON THIS SHIFT. WEARING O2 2L NC WHEN AWAKE AND OXYMASK AT 2L WHEN IN BED, LUNGS WITH CRACKLES MORE ON RIGHT THAN LET. C/O SOB WITH EXERTION X1. IN CHAIR MOST OF THIS SHIFT. TRANSFERS SELF IN ROOM. MOIST PRODUCTIVE COUGH OF CLEAR PHLEGM, WAS MEDICATED X2 WITH COUGH SYRUP WITH GOOD TO FAIR RESULTS. 2 SL PATENT. NO C/O ADVERSER EACTION TO IV ABX. TOLERATING WELL, AWARE OF 0830 LABS AND VANCO [facility]. TOLERATING DIET WELL, NO N/V, NO FEVER. COOP, CALL LIGHT AT BEDSIDE, IS AT BEDSIDE. CONTINUE TO ENCOURAGE USAGE.
--- NOTE | 2020-03-24 07:28 | NUR ---
RECEIVED REPORT FROM GRETA DURAN. PT APPEARS TO BE RESTING AT THIS TIME WITH RESPIRATIONS NOTED
--- NOTE | 2020-03-24 08:18 | NUR ---
ANSWERED PATIENT'S CALL LIGHT. HE WANTED TO GET UP AND SIT IN THE CHAIR FOR BREAKFAST. PATIENT IS INDEPENDENT. PATIENT IS EATING BREAKFAST. ARE PLAN IS TO GET HIM INTO THE SHOWER TODAY AND GO FOR A WALK. YESTERDAY HE DID THREE LAPS AROUND MED SURG. WITH ME.
--- NOTE | 2020-03-24 10:00 | NUR ---
Spoke with Martin. He plans on discharging today after lunch. Denies needs. States his neighbor will help him if needed. Called and confirmed oxygen will be delivered today by [facility]. Milton states Martin called them yesterday and will call them when he dc today so their regional refrigerated cdl truck driver can meet him. Phone for [facility] given to Martin to call on dc today.
[2020-03-24] MEDS ORDERED: MONODOX100 MG PO (11:15)
[2020-03-24] MEDS ORDERED: CEFPODOXIME PR200 MG PO (11:18)
--- NOTE | 2020-03-24 11:22 | NUR ---
PT ALERT, ORIENTED AND SITTING IN CHAIR WATCHING TV. MENTIONED HE HAD A BETTER NIGHT-NOT STELLAR BUT BETTER THAN NIGHT BEFORE. PT POSITIVE, THANKED ME FOR CHECKING IN. GAVE BLESSING
--- NOTE | 2020-03-24 11:59 | NUR ---
PATIENT WALKED 1 LAP AROUND [facility] WITH [place] AND THE OTHER TWO LAPS AROUND MED [facility] WITH . PATIENT IS NOW SITTING UP IN HIS CHAIR EATING HIS LUNCH.
== END 2020-03-24 13:35 | disposition home or self-care (01) | DRG 177 ==
LOC: ED 08:47 → CCU 11:58 → MS 03-21 15:50
PROVIDERS: ADMIT Internal Medicine
DX: J15.6 Pneumonia due to other Gram-negative bacteria (principal); J96.01 Acute respiratory failure with hypoxia; C91.10 Chronic lymphocytic leukemia of B-cell type not having achieved remission; J16.8 Pneumonia due to other specified infectious organisms; D70.9 Neutropenia, unspecified; R50.81 Fever presenting with conditions classified elsewhere; Z20.828 Contact with and (suspected) exposure to other viral communicable diseases; I10 Essential (primary) hypertension; E87.70 Fluid overload, unspecified; E79.0 Hyperuricemia without signs of inflammatory arthritis and tophaceous disease; Z91.040 Latex allergy status; Z79.82 Long term (current) use of aspirin; Z79.899 Other long term (current) drug therapy
CPT/HCPCS: 36415; 71045; 71046; 80048; 80053; 80202; 81001; 83605; 83735; 83880; 84100; 85025; 85610; 86850; 86900; 86901; 87040; 94640; 94760; 94761; 99284-25; J0456; J0692; J1447; J1650; J1940; J2543; J3370; J3480; J7030; J7050; J7060; U0002

== ENCOUNTER 2020-05-05 16:09 | Emergency (ER) | payer BC ==
[~2020-05-05] VITALS: Ht 188 cm; Wt 78.0 kg
[~2020-05-05 16:09] MED LIST changes: +ACYCLOVIR800 MG PO; +CEFPODOXIME PR200 MG PO; +CIPROFLOXACIN500 MG PO; +GAZYVA1000 MG/40 IV; +MONODOX100 MG PO
[2020-05-05] MEDS ORDERED: GAZYVA1000 MG/40 IV (16:22)
[2020-05-05] MEDS ORDERED: VENCLEXTA STAR1 EACH PO (16:23)
[2020-05-05] MEDS ORDERED: VENCLEXTA100 MG PO (16:24)
== END 2020-05-05 18:30 | disposition home or self-care (01) ==
LOC: ED 16:09
DX: R05 Cough (principal); Z91.040 Latex allergy status; Z79.899 Other long term (current) drug therapy
CPT/HCPCS: 71045; 99283-25

== ENCOUNTER 2020-06-26 15:18 | Emergency (ER) | payer BC ==
[~2020-06-26] VITALS: Ht 188 cm; Wt 78.0 kg
[~2020-06-26 15:18] MED LIST changes: +VENCLEXTA STAR1 EACH PO
[2020-06-26] MEDS ORDERED: BACTRIM DS TAB1 EACH PO (15:43)
== END 2020-06-26 19:16 | disposition home or self-care (01) ==
LOC: ED 15:18
DX: L03.116 Cellulitis of left lower limb (principal); Z91.040 Latex allergy status; Z79.899 Other long term (current) drug therapy; Z79.82 Long term (current) use of aspirin
CPT/HCPCS: 73630; 80053; 85025; 96365; 99283-25; J3370; J7060

== ENCOUNTER 2020-07-12 10:57 | Day surgery (SDC) | payer BC ==
[~2020-07-12] VITALS: Ht 188 cm; Wt 82.2 kg
[~2020-07-12 10:57] MED LIST changes: +BACTRIM DS TAB1 EACH PO
[2020-07-12] MEDS ORDERED: MUPIROCIN22 GM TOP (11:26)
[2020-07-12] MEDS ORDERED: DOXYCYCLINE HY100 MG PO (11:27)
[2020-07-12] MEDS ORDERED: GAZYVA1000 MG/40 IV (11:29)
[2020-07-12] MEDS ORDERED: PRILOSEC OTC20 MG PO (11:30)
--- NOTE | 2020-07-12 12:35 | NUR ---
07/12/20 1235 Guanakito Rodriguez REORIENTED TO TIME AND SITUATION ON ENTRY TO PACU. FALLS ASLEEP EASILY.
--- NOTE | 2020-07-19 13:27 | PATH ---
[facility] [address] [place], [place] [address] Signed THIS IS AN ADDENDUM REPORT SPECIMEN(S): A BONE MARROW - CORE SPECIMEN(S): B BONE MARROW - ASPIRATION SPECIMEN(S): C COMP FLOW CYTOMETRY, BM EDTA CLINICAL HISTORY: This is a 81-year-old man with CLL. Please evaluate for MRD after a course of treatment. C91.10 (chronic lymphocytic leukemia of B-cell type not having achieved remission) DIAGNOSIS SUMMARY: A. Peripheral blood, smear: - Mild leukopenia. - Mildly increased RBC count with microcytic, normochromic erythrocytes. B. Bone marrow, aspirate, clot section, and core biopsy: - Chronic lymphocytic leukemia, involving approximately 5% of marrow cellularity. - Normocellular marrow (30%) with trilineage hematopoiesis. - See Diagnostic Comment. DIAGNOSTIC COMMENT: Evaluation of this bone marrow biopsy demonstrates residual chronic lymphocytic leukemia (CLL), involving approximately 5% of marrow cellularity. No evidence of large cell transformation is seen. Prior CLL FISH panel was performed ([id number]), and showed normal results. Karyotype studies are pending and results will be reported in an addendum. As of note, while there is no anemia, the red cells are microcytic, and iron studies performed on the aspirate smear and clot section demonstrate absent stainable iron. Correlation with iron studies may be warranted to fully exclude an early component of iron deficiency. JC:caw:C1NR PERIPHERAL BLOOD: HEMOGRAM (07/12/2020): WBC 3.8 K/uL, RBC 5.89 M/uL, HGB 14.3 g/dL, HCT 44.0%, MCV 74.7 fL, MCH 24 pg, MCHC 33 g/dL, RDW 14.4%, PLT 244 K/uL. MANUAL DIFFERENTIAL COUNT (100 cells, performed by a pathologist): Segmented neutrophils 46%, lymphocytes 35%, monocytes 18%, basophils 1%. The red cells are slightly increased in number and are microcytic and normochromic. Anisocytosis is not prominent. Poikilocytosis is mild with a few scattered ovalocytes seen. Polychromasia is not PATIENT NAME: NICOLE RAY PATHOLOGY DATE OF : 59 REPORT #: [id number] PHYSICIAN: BHAVESH PATHOLOGY PCP: CAMPBELL POLLARD MD REPORT IS CONFIDENTIAL AND NOT TO BE RELEASED WITHOUT AUTHORIZATION [facility] [address] [place], [place] [address] Signed significantly increased. Leukocytes are mildly reduced in number. No significant dysplastic features are seen in the neutrophils. Circulating blasts are not identified. Lymphocytes include small mature lymphocytes and large granular lymphocytes. Platelets are normal in number and demonstrate unremarkable morphology. BONE MARROW: BONE MARROW ASPIRATE: The bone marrow aspirate smears demonstrate abundant cellular spicules. Myeloids are present in adequate number and show full-spectrum maturation. Erythroids are also present in adequate number and show full-spectrum maturation. No dysplastic features are appreciated. A few scattered small lymphocytes and plasma cells are seen, but do not appear significantly increased. Megakaryocytes are present in adequate number and show unremarkable morphology. MANUAL DIFFERENTIAL COUNT (200 cells): Blasts 0.5%, promyelocytes 2%, myelocytes 15%, metamyelocytes 12%, segs/bands 17.5%, erythroids 40.5%, lymphocytes 8%, plasma cells 0.5%, monocytes 2%, eosinophils 2%. BONE MARROW CORE BIOPSY AND ASPIRATE CLOT SECTION CELL BLOCK: The bone marrow core biopsy demonstrates a variable cellularity, ranging from less than 5% focally to approximately 40%, with an average overall cellularity of 30%, which is normocellular for age. The estimated M:E ratio is approximately 2:1. Both myeloids and erythroids demonstrate full-spectrum maturation. Blasts are not increased. Megakaryocytes are seen distributed throughout the marrow space and show generally large lobulated nuclei without atypical features noted. A few scattered small to intermediate size lymphoid aggregates composed of small mature lymphocytes are seen. Sheets of large cells are not appreciated. Trabecular bone is normal. The bone marrow clot sections demonstrate a few small fragments of marrow showing trilineage hematopoiesis. SPECIAL STAINS (with adequate controls): - Iron stain (aspirate smear): No definite specific staining seen ; no ring sideroblasts. - Iron stain (block B1): No definite stainable iron detected; no ring sideroblasts. IMMUNOHISTOCHEMICAL STAINS (block A1): - CD3: Positive in scattered small T-cells, and subset of lymphocytes in lymphoid aggregates. - PAX-5: Positive in many of the cells in the lymphoid aggregates, small in PATIENT NAME: NICOLE RAY PATHOLOGY DATE OF : 59 REPORT #: [id number] PHYSICIAN: BHAVESH BARAHONA PCP: CAMPBELL POLLARD MD REPORT IS CONFIDENTIAL AND NOT TO BE RELEASED WITHOUT AUTHORIZATION [address] [address] Signed size. - CD5: Co-expressed on lesional B-cells. - CD23: Co-expressed on lesional B-cells. - LEF-1: Positive on lesional B-cells. - Cyclin D1: Negative in cells of interest. JCH:caw FLOW CYTOMETRY: Bone marrow, flow cytometry: - Small abnormal kappa-restricted B-cell population expressing CD5 (less than 1% of all events, 3% of lymphocytes). - See Comment. COMMENT: Flow cytometry of this bone marrow specimen demonstrates a small abnormal kappa-restricted B-cell population (less than 1% of all events, 3% of lymphocytes) expressing CD5 and CD23 compatible with the patient's history of chronic lymphocytic leukemia. No increase in blasts is seen. Full interpretation of these results requires correlation with morphologic and clinical findings. FLOW CYTOMETRY ANALYSIS: FLOW DIFFERENTIAL (% Total CD45 vs. SSC gating): Myeloid 78%; Lymphoid 10%; Monocyte 4%; Dim CD45/Blast: 1.4%. Cell Count: 4.9 x 10*3/uL. POPULATION ANALYSIS: BLASTS: Analysis of the dim CD45 gate demonstrates 1% myeloblasts by CD34/CD117. LYMPHOID CELLS: The lymphocyte gate comprises 10% of total events and includes 86% T-cells with a CD4:CD8 ratio of 1.2:1. A T-cell subset is detected (10% of lymphocytes, 1% of total events) demonstrating co-expression of CD3 and CD56. 3% of lymphocytes (less than 1% of total events) are kappa-restricted B-cells expressing CD45 MOD, CD19 DIM, CD20 DIM-NEG, CD5 MOD, CD23 DIM-MOD, CD38 DIM (partial), and KAPPA DIM while negative for CD10 and FMC7. 35% of these CD5+/CD19+ B-cells co-express CD38. The remainders are NK-cells. MYELOID CELLS: The myeloid population comprises 78% of the total events. No aberrant or immature immunophenotypic expression is detected. MONOCYTES: The monocyte population comprises 4% of the total events. Monocytes are not increased. No aberrant immunophenotypic expression is detected. PLASMA CELLS: 0.1% plasma cells are detected in the screening gate neg-dimCD45/CD38. Plasma cells are CD45 dim and positive for CD19. ANTIBODIES USED: PATIENT NAME: NICOLE RAY PATHOLOGY DATE OF : 59 REPORT #: [id number] PHYSICIAN: BHAVESH BARAHONA PCP: CAMPBELL POLLARD MD REPORT IS CONFIDENTIAL AND NOT TO BE RELEASED WITHOUT AUTHORIZATION [facility] [address] [place], [place] [address] Signed KAPPA, LAMBDA, CD20, CD10, CD19, CD23, CD38, FMC7, CD16, CD56, CD8, CD5, CD2, CD4, CD7, CD3, CD14, CD33, CD13, HLADR, CD34, CD117, CD15, CD45: TOTAL ANTIBODIES USED: 24. JNB/TCS FINAL DIAGNOSIS PERFORMED BY: Shalini Man MD, Jul 13 2020 10:49AM CYTOGENETICS: Pending, to be reported by addendum. GROSS DESCRIPTION: A. The specimen, labeled "Feil, bone core," is received in formalin and consists of a 2.1 cm poe trabecular bone core. It is submitted in cassette A1, following decalcification in Immunocal for 1.5 hours. B. The specimen, labeled "Feil clot," is received in formalin and consists of a 1.4 x 1.3 x 0.3 cm aggregate of blood clot. It is submitted entirely in B1. TN (under the direct supervision of a pathologist) The Gross Description was prepared using a voice recognition system. The report was reviewed for accuracy; however, sound-alike word errors, addition and/or deletions may occur. If there is any question about this report, please contact Client Services. ADDITIONAL NOTES: This test was developed and its performance characteristics determined by [facility]. It has not been cleared or approved by the US Food and Drug Administration. The FDA does not require this test to go through premarket FDA review. This test is used for clinical purposes. It should not be regarded as investigational or for research. This laboratory is certified under the Clinical Laboratory Improvement Amendments (CLIA) as qualified to perform high complexity clinical laboratory testing. Immunohistochemical and/or in situ hybridization studies were performed on this case with the appropriate positive controls that react as expected. This test was developed and its performance characteristics determined by [facility]. It has not been cleared or approved by the U.S. Food and Drug Administration. The FDA has determined that such clearance or approval is not necessary. This test is used for clinical purposes. It should not be regarded as investigational or for research. [facility] is certified under the Clinical Laboratory Improvement PATIENT NAME: NICOLE RAY PATHOLOGY DATE OF : 59 REPORT #: [id number] PHYSICIAN: BHAVESH PATHOLOGY PCP: CAMPBELL POLLARD MD REPORT IS CONFIDENTIAL AND NOT TO BE RELEASED WITHOUT AUTHORIZATION [facility] [address] [place], [place] [address] Signed Amendments of 1988 (CLIA) as qualified to perform high complexity clinical laboratory testing. In this case, certain antibodies were performed by both immunohistochemistry and flow cytometry analysis because flow cytometry analysis did not fully explain all the light microscopic findings. Immunohistochemistry aided in the analysis. Both methods are deemed medically necessary in this case. PERFORMING LABORATORY: The technical component was performed by [facility], [address] [place] [address] (Hydraulic Dredge Operator: Juan Mclaughlin D.O.; CLIA#: [id number]). Professional interpretation was performed by [facility], [address] [place] [address] (Hydraulic Dredge Operator: Bakari Astudillo Jr., M.D., [facility]; CLIA#: [id number]). Professional interpretation was performed by [facility] [facility], [address] [place] [address] (Hydraulic Dredge Operator: Bakari Astudillo Jr., M.D., [facility]; CLIA#: [id number]). IMAGES: [id number]: [id number] A: [id number] REASON FOR ADDENDUM: To add results of additional testing. Bone marrow aspirate, cytogenetic analysis: Result: 46,XY[20] Normal male karyotype Interpretation: Twenty normal cells were observed. There was no evidence of any chromosome abnormality within the limits of this study. Cytogenetic Analysis Summary: Number of Cells Imaged and Analyzed: 20 Number of Cultures used for Analysis: 2 Number of Karyograms: 5 Banding Level: 350-400 Extra Cells Analyzed /Scored: 0 Banding Method: GTW/G The technical and professional components of the cytogenetic analysis were performed at [facility] ([place], [place], case #[id number]). Detailed report is kept on file. Diagnostician: Shalini Man MD Pathologist PATIENT NAME: NICOLE RAY PATHOLOGY DATE OF : 59 REPORT #: [id number] PHYSICIAN: BHAVESH PATHOLOGY PCP: CAMPBELL POLLARD MD REPORT IS CONFIDENTIAL AND NOT TO BE RELEASED WITHOUT AUTHORIZATION [address] [place], [place] [address] Signed Diagnostician: Joanne Benson MD Pathologist Electronically Signed 07/19/2020 Copies: ~ PATIENT NAME: NICOLE RAY PATHOLOGY DATE OF : 59 REPORT #: [id number] PHYSICIAN: BHAVESH PATHOLOGY PCP: CAMPBELL POLLARD MD REPORT IS CONFIDENTIAL AND NOT TO BE RELEASED WITHOUT AUTHORIZATION
== END 2020-07-12 13:10 | disposition home or self-care (01) ==
LOC: OPS 10:57 → DS 10:57 → OPS 10:58 → DS 12:00 → OPS 13:10
PROVIDERS: ATTEND Specialist
PROC: 079T3ZX Drainage of Bone Marrow, Percutaneous Approach, Diagnostic (ICD-10-PCS; 2020-07-12)
PROC: 07DR3ZX Extraction of Iliac Bone Marrow, Percutaneous Approach, Diagnostic (ICD-10-PCS; principal; 2020-07-12 12:00)
DX: C91.10 Chronic lymphocytic leukemia of B-cell type not having achieved remission (principal)
CPT/HCPCS: 85025; 99153; G0500; J2250; J3010; J7121

== ENCOUNTER 2021-02-21 10:59 | Day surgery (SDC) | payer BC ==
[~2021-02-21] VITALS: Ht 188 cm; Wt 87.3 kg
[~2021-02-21 10:59] MED LIST changes: +DOXYCYCLINE HY100 MG PO; +MUPIROCIN22 GM TOP
[2021-02-21] MEDS ORDERED: HYDROCHLOROTH12.5 M1 PO (11:47)
--- NOTE | 2021-02-21 12:58 | NUR ---
02/21/21 1258 Sheets,Tanya 1254 PT ARRIVED TO PACU ON 3L VIA NC, PT WAKES EASILY TO VERBAL STIMULI. DRESSING CDI. VSS.
--- NOTE | 2021-02-28 12:43 | PATH ---
[facility] [address] [place], [place] [address] Signed THIS IS AN ADDENDUM REPORT SPECIMEN(S): A BONE MARROW - CORE SPECIMEN(S): B BONE MARROW - ASPIRATION SPECIMEN(S): C B T CELL FLOW ONLY, BM EDTA TUBE CLINICAL HISTORY: 65-year-old male with confirmed B-cell CLL s/p rx with obinutuzumab and venetoclax resolution of lymphocytosis and lymphadenopathy. Evaluate for minimal residual disease. See attached. C91.10 (chronic lymphocytic leukemia of B-cell type not having achieved remission) DIAGNOSIS SUMMARY: A. Peripheral blood - Unremarkable. Absolute lymphocyte count is 1,310/uL. - No circulating blasts or atypical lymphocytes are identified. B. Bone marrow biopsy and aspiration: - Normocellular marrow, 30%, with less than 1% blasts. - Trilineage hematopoiesis with no significant dyspoiesis. - Focal CLL/SLL occupying approximately 2-3% of marrow cellularity. - No high-grade transformation is identified. DIAGNOSTIC COMMENT: CLL/SLL is focally identified in small aggregates within the marrow, occupying approximately 2-3% of the overall cellularity. No transformation is identified. A FISH panel for CLL and chromosome analysis will be reported in an addendum. JLP:C1NR HISTORICAL SUMMARY: 65-year-old male with a history of CLL status post chemotherapy treatment. This bone marrow is to evaluate for MRD. A past FISH panel for CLL in December 2019 reportedly revealed trisomy 12. IGVH was reported as non-mutated. The peripheral blood lymphocytosis has resolved with chemotherapy. PERIPHERAL BLOOD: HEMOGRAM (02/21/2021): WBC 5,800 K/ul, RBC 5.71 M/ul, HGB 15.5 g/dl, HCT 45.8%, MCV 80.2 fl, MCH 27 pg, MCHC 34 g/dl,, PLT 171 K/ul. Absolute lymphocyte count 1,310/ul. AUTOMATED DIFFERENTIAL COUNT: Neutrophils 69.7%, lymphocytes 22.6%, monocytes PATIENT NAME: NICOLE RAY PATHOLOGY DATE OF : 59 REPORT #: [id number] PHYSICIAN: BHAVESH BARAHONA PCP: CAMPBELL POLLARD MD REPORT IS CONFIDENTIAL AND NOT TO BE RELEASED WITHOUT AUTHORIZATION [facility] [address] [place], [place] [address] Signed 7.1%, eosinophils 0.2%, basophils 0.4%. The red blood cells are normocytic and normochromic with minimal anisopoikilocytosis. The neutrophils are unremarkable. Lymphocytes are composed of small mature appearing forms. Platelets appear normal in number and morphology with no platelet clumping or RBC microangiopathic effect identified. No blasts are identified. BONE MARROW: ASPIRATE SMEARS/TOUCH IMPRINT: The aspirate smears are adequate for evaluation. Scattered erythroid precursors show adequate maturation with essentially normal morphology. The myeloid precursors show full maturation with unremarkable morphology. There is no increase in blasts. Megakaryocytes are identified with a normal morphology. BONE MARROW DIFFERENTIAL COUNT (300 cells): Blasts less than 1%, promyelocytes less than 1%, myelocytes 3%, metamyelocytes/bands/segs 48%, erythroid precursors 37%, lymphocytes 8%, monocytes 4%, eosinophils less than 1%, plasma cells less than 1%. M:E ratio: 1.4:1 BONE MARROW CORE BIOPSY/ASPIRATE CLOT/CELL BLOCK: The aspirate clot section and the core biopsy are adequate for evaluation. The core biopsy demonstrates unremarkable trabecular bone. The cellularity is normal for age, estimated at 30%. The erythroid precursors are within normal limits with essentially unremarkable maturation. The myeloid precursors are unremarkable with no significant dyspoiesis. Blasts are not increased. Small circumscribed lymphoid aggregates are noted occupying approximately 3% of the marrow cellularity. A panel of stains are performed to evaluate these lymphoid aggregates (results below). Megakaryocytes appear normal in number and in morphology. No granulomas or foreign malignant cells are detected. SPECIAL STAINS (with adequate controls): - Iron (aspirate smear): Insufficient marrow spicules are resent for evaluation of iron stores. No ring sideroblasts are identified. - Iron (aspirate clot): Appears decreased but insufficient marrow spicules are present for full evaluation. IMMUNOHISTOCHEMISTRY STAINS (performed on block A1 with adequate controls): - PAX5: Positive in small lymphoid aggregates. Strong - CD3: Dim marking in small lymphoid aggregates. - CD5: Positive marking similar to PAX 5 - CD23: Positive marking similar to PAX 5 - LEF1: Dim marking in lymphoid aggregates. PATIENT NAME: NICOLE RAY PATHOLOGY DATE OF : 59 REPORT #: [id number] PHYSICIAN: BHAVESH BARAHONA PCP: CAMPBELL POLLARD MD REPORT IS CONFIDENTIAL AND NOT TO BE RELEASED WITHOUT AUTHORIZATION [address] [address] Signed FLOW CYTOMETRY: Bone marrow, flow cytometry: - Extremely small population (less than 1% of all analyzed cells) of CD5 positive, CD10 negative, kappa restricted B-cells. - See Comment. COMMENT: The patient's history of kappa restricted CLL/SLL is noted. An extremely small population of kappa restricted B-cells is identified, occupying less than 1% of all analyzed cells. This clonal population of B-cells is positive for kappa light chain, CD19, CD5, and CD23. There is no significant expression of CD20, CD10, or FMC-7. The majority of the gated lymphocytes are T-cells with a normal marking pattern. This small clonal population is suggestive of minimal residual disease, less than 1% of all analyzed cells. Correlation bone marrow and other laboratory results are required for confirmation. FLOW CYTOMETRY ANALYSIS: FLOW DIFFERENTIAL (% Total CD45 vs. SSC gating): Myeloid 81%; Lymphoid 8%; Monocyte 3%. Cell Count: 3.2 x 10*3/uL. POPULATION ANALYSIS: LYMPHOID CELLS: The lymphocyte gate comprises 8% of total events and includes 93% T-cells with a CD4:CD8 ratio of 1.0:1 and normal holbrook T-cell antigen expression. A minute kappa-restricted B-cell population is detected (<1% of lymphocytes, <1% of total events) expressing CD45 MOD, CD19 DIM, CD5 MOD, CD23 MOD, CD38 DIM (partial) and KAPPA DIM while negative for CD20, CD10 and FMC7. 33% of these CD5+/CD19+ B-cell co-express CD38. The remainders are NK-cells. PLASMA CELLS: A significant plasma cell population is not detected in the neg-dimCD45/CD38 screening gate. ANTIBODIES USED: KAPPA, LAMBDA, CD20, CD10, CD19, CD23, CD38, FMC7, CD16, CD56, CD8, CD5, CD2, CD4, CD7, CD3, CD45. TOTAL ANTIBODIES USED: 17. JNB FINAL DIAGNOSIS PERFORMED BY: Live Wiseman MD, Feb 22 2021 2:32PM CYTOGENETICS: Chromosome analysis is pending and the results will be reported in and addendum. PATIENT NAME: NICOLE RAY PATHOLOGY DATE OF : 59 REPORT #: [id number] PHYSICIAN: BHAVESH PATHOLOGY PCP: CAMPBELL POLLARD MD REPORT IS CONFIDENTIAL AND NOT TO BE RELEASED WITHOUT AUTHORIZATION [facility] [address] [place], [place] [address] Signed FISH ANALYSIS: A FISH panel for CLL is requested and the results will be reported in an addendum. GROSS DESCRIPTION: Two specimens are received in two containers, labeled "DF." A. The specimen, labeled "DF, bone marrow core biopsy," is received in formalin and consists of one pink-poe needle core bone tissue fragment that measures 2.2 cm in length and up to 0.2 cm in diameter. Specimen is left for decalcification in Immunocal prior to processing. Specimen is entirely submitted in cassette (A1). B. The specimen, labeled "DF, bone marrow aspiration," is received in formalin and consists of coagulated blood fragments that measure 1.7 x 1.7 x 0.6 cm. Specimen is entirely submitted in cassette (B1). JS (under the direct supervision of a pathologist) The Gross Description was prepared using a voice recognition system. The report was reviewed for accuracy; however, sound-alike word errors, addition and/or deletions may occur. If there is any question about this report, please contact Client Services. ADDITIONAL NOTES: Immunohistochemical and/or in situ hybridization studies were performed on this case with the appropriate positive controls that react as expected. This test was developed and its performance characteristics determined by [facility]. It has not been cleared or approved by the U.S. Food and Drug Administration. The FDA has determined that such clearance or approval is not necessary. This test is used for clinical purposes. It should not be regarded as investigational or for research. [facility] is certified under the Clinical Laboratory Improvement Amendments of 1988 (CLIA) as qualified to perform high complexity clinical laboratory testing. This assay has not been validated for specimens that have been decalcified. In this case, certain antibodies were performed by both immunohistochemistry and flow cytometry analysis because flow cytometry analysis did not fully explain all the light microscopic findings. Immunohistochemistry aided in the analysis. Both methods are deemed medically necessary in this case. This test was developed and its performance characteristics determined by [facility]. It has not been cleared or approved by the Food and PATIENT NAME: NICOLE RAY PATHOLOGY DATE OF : 59 REPORT #: [id number] PHYSICIAN: BHAVESH BARAHONA PCP: CAMPBELL POLLARD MD REPORT IS CONFIDENTIAL AND NOT TO BE RELEASED WITHOUT AUTHORIZATION [address] [address] Signed Drug Administration. The FDA does not require this test to go through premarket FDA review. This test is used for clinical purposes. It should not be regarded as investigational or for research. This laboratory is certified under the Clinical Laboratory Improvement Amendments (CLIA) as qualified to perform high complexity clinical laboratory testing. PERFORMING LABORATORY: The technical component was performed by [facility], [address] [place] [address] (Freelance Art Director: Juan Mclaughlin D.O.; CLIA#: [id number]). Professional [place] [address]. A portion of the technical component was performed by [facility], [address] [place] [address] (Freelance Art Director: Michelle Gentile MD; CLIA# [id number]). A portion of the technical component was performed by [facility], [address] [place] [address] (Freelance Art Director: Juan Mclaughlin D.O.; CLIA#: [id number]). Professional [place] [address] . IMAGES: A: [id number] A: [id number] SPECIMEN SOURCE: A. FISH Analysis, CLL FISH, BM EDTA CLINICAL HISTORY: 65-year-old male with confirmed B-cell CLL s/p rx with obinutuzumab and venetoclax resolution of lymphocytosis and lymphadenopathy. Evaluate for minimal residual disease. C91.10 (chronic lymphocytic leukemia of B-cell type not having achieved remission) FISH (fluorescence in situ hybridization) RESULT: Not Detected INTERPRETATION: 6q deletion: Not detected Trisomy 12: Not detected 13q deletion/monosomy 13: Not detected HARRY (11q22) deletion: Not detected p53 (17p13) deletion: Not detected CCND1/IgH rearrangement t(11;14): Not detected PATIENT NAME: NICOLE RAY PATHOLOGY DATE OF : 59 REPORT #: [id number] PHYSICIAN: BHAVESH PATHOLOGY PCP: CAMPBELL POLLARD MD REPORT IS CONFIDENTIAL AND NOT TO BE RELEASED WITHOUT AUTHORIZATION [facility] [address] [place], [place] [address] Signed Fluorescence in situ hybridization (FISH) analysis was performed using a Chronic Lymphocytic Leukemia (CLL) specific set of probes. No abnormality is detected. No evidence of 6 (MYB), 6 (SEC63), 11q (HARRY), 13q14 or 17p (p53) deletion, trisomy 12, or CCND1/IgH rearrangement is detected. This analysis is limited to abnormalities detectable by the specific probes included in the study. FISH should be interpreted within the context of a full cytogenetic analysis and hematologic evaluation. ISCN: Probe Set Detail: 6q-: nuc jeremi 6q23(MYBx2),6q21(JCX78j5)[200] Chromosomes 12: nuc jeremi 12cen(C20V0y3)[200] Chromosome 13: nuc jeremi 13q14(U40H464g3),13q34(BLPV4e5)[200] Chromosomes 11 17: nuc jeremi 11q22.3(ATMx2),17p13.1(TP53x2)[200] CCND1/IgH t(11;14): nuc jeremi 11q13(MNBT3c5),14q32(IGHx2)[200] References: Nicole quarles al., (2013) Br J Haematol 163(1):47-54.PMID#[id number] Katya (2013) Adv Exp Med Biol 792:193-214.PMID#[id number] Hugh et al., (2012) Cancer 118(14):3531-7.PMID#[id number] Tony et al., (2011) Clin Lab Med 31:649-658.PMID#[id number] FISH Analysis Summary: Nuclei Scored: 200 Scoring Method: Manual; CPT Code 74758 Number of Probe units: 4 Multiplex Cells analyzed: Interphase Probe sets: Chrom 6: SEC63, Chrom 6: MYB, Chrom 12: SYDNIE 12 , Chrom 13: W21L459, Chrom 13: LAMP1,Chrom 11: HARRY , Chrom 17: TP53 , Chrom 11: CCND1, Chrom 14: IgH ADDITIONAL NOTES: This test was developed and its performance characteristics determined by [facility], [employer]. It has not been cleared or approved by the US Food and Drug Administration. The [employer] probe vendor for this study was [employer]. PERFORMING LABORATORY: The technical component of the FISH testing was performed by [facility], [address] [place] [address] (Freelance Art Director: Juan Mclaughlin D.O.; CLIA#: [id number]). Professional interpretation was performed by [facility] [id number] PATIENT NAME: NICOLE RAY PATHOLOGY DATE OF : 59 REPORT #: [id number] PHYSICIAN: BHAVESH PATHOLOGY PCP: CAMPBELL POLLARD MD REPORT IS CONFIDENTIAL AND NOT TO BE RELEASED WITHOUT AUTHORIZATION [facility] [address] [place] [address] [place] [address] [address] [place] [address] (Freelance Art Director: Juan Mclaughlin D.O.; [facility]#: [id number]). FINAL DIAGNOSIS PERFORMED BY: Avila Brown MD. MPH, Pathologist Feb 23 2021 6:13PM REASON FOR ADDENDUM: To add results of additional testing. To add results of additional testing. Bone marrow aspirate, cytogenetic analysis: Result: 46,XY[20] Normal male karyotype Interpretation: Twenty normal cells were observed. There was no evidence of any chromosome abnormality within the limits of this study. Cytogenetic Analysis Summary: Number of Cells Imaged and Analyzed: 20 Number of Cultures used for Analysis: 2 Number of Karyograms: 4 Banding Level: 325-375 Extra Cells Analyzed /Scored: 0 Banding Method: GTW/G The technical and professional components of the cytogenetic analysis were performed at [facility], [employer]. ([place], [place], case #[id number]). Detailed report is kept on file. Diagnostician: Avila Brown MD. MPH Pathologist Diagnostician: Live Wiseman MD Pathologist Electronically Signed 02/28/2021 Copies: ~ PATIENT NAME: NICOLE RAY PATHOLOGY DATE OF : 59 REPORT #: [id number] PHYSICIAN: BHAVESH PATHOLOGY PCP: CAMPBELL POLLARD MD REPORT IS CONFIDENTIAL AND NOT TO BE RELEASED WITHOUT AUTHORIZATION
== END 2021-02-21 13:54 | disposition home or self-care (01) ==
LOC: OPS 10:59 → DS 10:59 → OPS 12:00 → DS 12:00 → OPS 13:54
PROVIDERS: ATTEND Specialist
PROC: 079T3ZX Drainage of Bone Marrow, Percutaneous Approach, Diagnostic (ICD-10-PCS; 2021-02-21)
PROC: 07DR3ZX Extraction of Iliac Bone Marrow, Percutaneous Approach, Diagnostic (ICD-10-PCS; principal; 2021-02-21 12:00)
DX: C91.10 Chronic lymphocytic leukemia of B-cell type not having achieved remission (principal); E80.4 Gilbert syndrome; I10 Essential (primary) hypertension; K21.9 Gastro-esophageal reflux disease without esophagitis; J30.9 Allergic rhinitis, unspecified; Z90.49 Acquired absence of other specified parts of digestive tract; Z79.82 Long term (current) use of aspirin; Z79.899 Other long term (current) drug therapy; Z91.040 Latex allergy status
CPT/HCPCS: 85025; 99153; G0500; J2250; J3010

== ENCOUNTER 2021-04-09 07:27 | Day surgery (SDC) | payer BC ==
[~2021-04-09] VITALS: Ht 188 cm; Wt 86.0 kg
[~2021-04-09 07:27] MED LIST changes: +HYDROCHLOROTH12.5 M1 PO
[2021-04-09] MEDS ORDERED: VENCLEXTA100 MG PO (07:51)
--- NOTE | 2021-04-09 10:02 | NUR ---
04/09/21 1002 Guanakito Rodriguez MD AT BEDSIDE REVIEWING PROCEDURE WITH PT. PT DENIES NAUSEA OR PAIN.
--- NOTE | 2021-04-10 17:51 | PATH ---
[facility] [address] [place], [place] [address] Signed SPECIMEN(S): A CECUM SPECIMEN(S): B SPLENIC FLEXURE POLYP SPECIMEN SOURCE: A. CECUM B. SPLENIC FLEXURE POLYP CLINICAL HISTORY: Colonoscopy with poss. biopsies. Hyperplastic polyp. DX: Polyp. MICROSCOPIC DESCRIPTION: Histologic sections of all submitted blocks are examined by light microscopy. These findings, together with the gross examination, support the pathologic diagnosis. FINAL PATHOLOGIC DIAGNOSIS: A. Colon, cecum, biopsy: - Fragments of colonic mucosa with mild mucosal capillary congestion. - Negative for active, chronic, or microscopic colitis. - Negative for dysplasia or malignancy. B. Colon, splenic flexure, polyp, polypectomy: - Colonic mucosa with no histopathologic abnormality. - Negative for dysplasia or malignancy. COMMENT: Regarding specimen B: Multiple additional deeper levels were examined. NAL:cml:C2NR GROSS DESCRIPTION: Two specimens are received in two containers, labeled "DF." A. The specimen, labeled "DF, 1," and designated on the requisition "cecum," is received in formalin and consists of three poe soft tissue fragments that measure 0.2 cm in greatest dimension. The specimen is entirely submitted in cassette (A1). B. The specimen, labeled "DF, 2," and designated on the requisition "splenic flexure polyp," is received in formalin and consists of one poe soft tissue fragment that measures 0.3 cm in greatest dimension. The specimen is entirely submitted in cassette (B1). AT (under the direct supervision of a pathologist) The Gross Description was prepared using a voice recognition system. The report was reviewed for accuracy; however, sound-alike word errors, addition and/or deletions may occur. If there is any PATIENT NAME: NICOLE RAY PATHOLOGY DATE OF : 59 REPORT #: [id number] PHYSICIAN: BHAVESH BARAHONA PCP: CAMPBELL POLLARD MD REPORT IS CONFIDENTIAL AND NOT TO BE RELEASED WITHOUT AUTHORIZATION [facility] [address] [place] [address] Signed question about this report, please contact Client Services. PERFORMING LABORATORY: The technical component was performed by [employer], [address] [place] [address] (Vocational Examiner: Michelle Gentile MD; CLIA# [id number]). [facility], [address] [place] [address] (CLIA# [id number]). Diagnostician: Sophie Vaca MD Pathologist Electronically Signed 04/10/2021 Copies: ~ PATIENT NAME: NICOLE RAY PATHOLOGY DATE OF : 59 REPORT #: [id number] PHYSICIAN: BHAVESH BARAHONA PCP: CAMPBELL POLLARD MD REPORT IS CONFIDENTIAL AND NOT TO BE RELEASED WITHOUT AUTHORIZATION
--- NOTE | 2021-04-11 12:44 | OR ---
[facility] [address] [place], [place] [address] Signed DATE OF OPERATION: 04/09/2021 SURGEON: Aime Marin MD PREOPERATIVE DIAGNOSES: 1. Chronic lymphocytic leukemia. 2. History of hyperplastic polyp of the rectum. POSTOPERATIVE DIAGNOSIS: Hyperplastic-appearing polyp of splenic flexure (excised mild cecal inflammation), biopsied. PROCEDURE: Total colonoscopy to cecum with cold morcellation polypectomy x1 and biopsy of cecum. ANESTHESIA: Intravenous sedation; fentanyl 100 mcg, Versed 4 mg. INDICATION: This 65-year-old white man is a patient Dr. Campbell Lucas and is here for surveillance colonoscopy. He has long-standing chronic lymphocytic leukemia and has enjoyed a good remission with appropriate therapy. He was diagnosed in about 2013. He underwent colonoscopy in 2015, when he was found to have a hyperplastic polyp of the rectum. He has no current symptoms of bleeding, diarrhea, or constipation. He does have family history of colon cancer in an uncle. He is admitted at this time to undergo surveillance colonoscopy. He understands the risks of bleeding, infection, and perforation. FINDINGS: The prep was good. Complete colonoscopy was undertaken of the cecum. There was a hyperplastic-appearing polyp of splenic flexure, which was quite small and was excised without problem. The cecum appeared mildly inflamed, probably nothing clinically important, but was biopsied nevertheless, given his underlying CLL. The remaining colon and rectum were normal. DESCRIPTION OF PROCEDURE: The patient was brought to the surgical endoscopy suite, placed in lateral decubitus position, given intravenous sedation to point of slurred speech and nystagmus. Full cardiopulmonary monitoring was maintained. Digital rectal examination was normal including a normal prostate. Electronically Signed By: AIME MARIN MD 04/11/21 1244 PATIENT NAME: NICOLE RAY OPERATIVE REPORT DATE OF : 59 REPORT #: [id number] PHYSICIAN: AIME MARIN MD PCP: CAMPBELL LUCAS MD REPORT IS CONFIDENTIAL AND NOT TO BE RELEASED WITHOUT AUTHORIZATION [facility] [address] [place], [place] [address] Signed An Olympus video colonoscope was passed in the rectum and manipulated throughout the colon ultimately intubating the cecum. The ileocecal valve and appendiceal orifice were normal. The cecum itself appeared mildly edematous. Biopsies obtained, given his underlying history of CLL. The scope was withdrawn and careful inspection upon withdrawal of scope showed no abnormality until the splenic flexure where there was a small hyperplastic-appearing polyp. This was excised with cold morcellation technique. Further withdrawal of scope showed no other abnormalities of concern. The scope was removed and the patient was taken to the recovery room in good condition. CONCLUDING DIAGNOSES: 1. Hyperplastic polyp of splenic flexure. 2. Minimal inflammation of cecum. PLAN: Recommend repeat colonoscopy in 5 years sooner if symptoms should develop. He will return to the ongoing care of Dr. Campbell Lucas. MD DEVAN Morocho/ELIA /[id number] cc: Campbell Lucas MD Copies: CAMPBELL LUCAS MD ~ Electronically Signed By: AIME MARIN MD 04/11/21 1244 PATIENT NAME: NICOLE RAY OPERATIVE REPORT DATE OF : 59 REPORT #: [id number] PHYSICIAN: AIME MARIN MD PCP: CAMPBELL LUCAS MD REPORT IS CONFIDENTIAL AND NOT TO BE RELEASED WITHOUT AUTHORIZATION
== END 2021-04-09 10:50 | disposition home or self-care (01) ==
LOC: OPS 07:27 → DS 07:27 → OPS 08:30
PROVIDERS: ATTEND Surgery
PROC: 0DBL8ZX Excision of Transverse Colon, Via Natural or Artificial Opening Endoscopic, Diagnostic (ICD-10-PCS; 2021-04-09)
PROC: 0DBH8ZX Excision of Cecum, Via Natural or Artificial Opening Endoscopic, Diagnostic (ICD-10-PCS; principal; 2021-04-09 08:30)
DX: Z12.11 Encounter for screening for malignant neoplasm of colon (principal); K63.5 Polyp of colon; C91.11 Chronic lymphocytic leukemia of B-cell type in remission; I10 Essential (primary) hypertension; K21.00 Gastro-esophageal reflux disease with esophagitis, without bleeding; E80.4 Gilbert syndrome; Z87.19 Personal history of other diseases of the digestive system; Z79.82 Long term (current) use of aspirin; Z80.0 Family history of malignant neoplasm of digestive organs
CPT/HCPCS: 99153; G0500; J2250; J3010; J7121

== ENCOUNTER 2022-03-27 10:35 | Day surgery (SDC) | payer BC ==
[~2022-03-27] VITALS: Ht 188 cm; Wt 84.5 kg
[~2022-03-27 10:35] MED LIST changes: +VITAMIN D-40010 MCG
--- NOTE | 2022-03-27 12:25 | NUR ---
03/27/22 Loren5 Joycelyn Moya 1220-PATIENT ARRIVED TO PACU ON 6L MASK NONAROUSABLE RR EVEN. PATIENT LAYING PRONE. SR. IVF INFUSING. BANDAID TO LEFT LOWER BACK.
--- NOTE | 2022-03-29 16:44 | PATH ---
[facility] [address], [place] [address] Signed SPECIMEN(S): A BONE MARROW - CORE SPECIMEN(S): B BONE MARROW - ASPIRATION SPECIMEN(S): C FLOW CYTOMETRY IN BM EDTA CLINICAL HISTORY: Bone marrow biopsy. 66-year-old male with CLL on venetoclax. Please evaluate MRD. See attached. 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 Peripheral blood - Unremarkable. - No circulating atypical lymphocytes or blasts are identified. B. Bone marrow biopsy and aspiration: - Normocellular marrow, 35%, with 1% blasts. - Trilineage hematopoiesis with no significant dyspoiesis. - 1-2% marrow involvement by CLL/SLL. - Decreased marrow iron stores by Prussian Blue stain. - See diagnostic comment. DIAGNOSTIC COMMENT: CLL/SLL minimal residual disease is noted, occupying approximately 1-2% of the marrow cellularity. JLP:C1NR HISTORICAL SUMMARY: 66-year-old male, initially diagnosed with CLL on a bone marrow exam in December 2013. At that time, the CLL involved approximately 25% of the marrow. ZAP-70 was reported as positive. CD38 level by flow cytometry was reported at 47.5%. Pancytopenia and progressive adenopathy was noted in 2019 and therapy was initiated. Reportedly, a bone marrow exam at that time revealed 95% cellular marrow with 80% involvement by CLL. His most recent bone marrow exam (see case [id number]; 02/21/2021) revealed a 30% marrow cellularity with 2-3% involvement by CLL. This current bone marrow exam is to evaluate for minima residual disease (MRD). PERIPHERAL BLOOD: HEMOGRAM (03/27/2022): WBC 6.1 K/ul, RBC 5.90 M/ul, HGB 16.5 g/dl, HCT 47.8%, MCV 81.0 fl, MCH 28.0 pg, MCHC 34.5 g/dl, RDW 14.2%, PLT 165 K/ul. PATIENT NAME: NICOLE RAY PATHOLOGY DATE OF : 59 REPORT #: [id number] PHYSICIAN: BHAVESH BARAHONA PCP: CAMPBELL POLLARD MD REPORT IS CONFIDENTIAL AND NOT TO BE RELEASED WITHOUT AUTHORIZATION [facility] [address], [place] [address] Signed AUTOMATED DIFFERENTIAL COUNT: Neutrophils 63.0%, lymphocytes 28.2%, monocytes 8.5%, eosinophils 0.1%, basophils 0.2%. The red blood cells are normocytic and normochromic with minimal anisopoikilocytosis. The neutrophils are unremarkable. Lymphocytes are composed of small mature appearing forms. Platelets appear normal in number and morphology with no platelet clumping or RBC microangiopathic effect identified. No blasts are identified. BONE MARROW: ASPIRATE SMEARS/TOUCH IMPRINT: The aspirate smears are adequate for evaluation. Scattered erythroid precursors show adequate maturation with essentially normal morphology. The myeloid precursors show full maturation with unremarkable morphology. There is no increase in blasts. Megakaryocytes are identified with a normal morphology. BONE MARROW DIFFERENTIAL COUNT (300 cells): Blasts 1%, promyelocytes 1%, myelocytes 5%, metamyelocytes/bands/segs 48%, erythroid precursors 33%, lymphocytes 7%, monocytes 5%, eosinophils less than 1%, plasma cells less than 1%. M:E ratio: 1.7:1 BONE MARROW CORE BIOPSY/ASPIRATE CLOT/CELL BLOCK: The aspirate clot section and the core biopsy are adequate for evaluation. The core biopsy demonstrates unremarkable trabecular bone. The cellularity is normal for age, estimated at 35%. The erythroid precursors are within normal limits with essentially unremarkable maturation. The myeloid precursors are unremarkable with no significant dyspoiesis. Blasts are not increased. Megakaryocytes appear normal in number and in morphology. No granulomas, atypical lymphoid aggregates or foreign malignant cells are detected. SPECIAL STAINS (with adequate controls): - iron (aspirate smear): Decreased marrow iron stores by Prussian Blue stain. No ring sideroblasts are identified. - iron (cell block): Decreased marrow iron stores by Prussian Blue stain. No ring sideroblasts are identified. IMMUNOHISTOCHEMISTRY STAINS (performed on block A1 with adequate controls). - PAX5: Strong positive in small lymphoid aggregates occupying approximately 1-2% of marrow cellularity. - CD3; Focal positive in small lymphocytes. B-cells much stronger than T-cells. - CD5: Positive with co-expression with PAX5 positive cells in the small lymphoid aggregates. - LEF-1: Dim positive in lymphoid aggregates - CD23: Positive with co-expression with PAX5 positive cells in the small PATIENT NAME: NICOLE RAY PATHOLOGY DATE OF : 59 REPORT #: [id number] PHYSICIAN: BHAVESH BARAHONA PCP: CAMPBELL POLLARD MD REPORT IS CONFIDENTIAL AND NOT TO BE RELEASED WITHOUT AUTHORIZATION [address] [address] Signed lymphoid aggregates. FLOW CYTOMETRY: Bone marrow, flow cytometry: - Scant population (less than 0.1% of all gated cells) of CD5 positive, CD10 negative, kappa restricted B-cells, suggestive of minimal residual disease (CLL/SLL). - See Comment. COMMENT: The patient's history of CLL is noted. A small population (1% of all lymphocytes, less than 0.1% of all gated cells) are kappa restricted B-cells positive for CD19, CD5, and CD23. There is no expression of CD10, CD20, or CD38. In a setting of known CLL, this pattern of marking is consistent with minimal residual disease (0.1% or less). Blasts and plasma cells are not increased in number. The myeloid and monocyte [place] are unremarkable. FLOW CYTOMETRY ANALYSIS: FLOW DIFFERENTIAL (% Total CD45 vs. SSC gating): Myeloid 81%; Lymphoid 8%; Monocyte 4%; Dim CD45/Blast: 1.1%. Cell Count: 8.5 x 10*3/uL. POPULATION ANALYSIS: BLASTS: Analysis of the dim CD45 gate demonstrates 1.1% myeloblasts by CD34/CD117. LYMPHOID CELLS: The lymphocyte gate comprises 8% of total events and includes 93% T-cells with a CD4:CD8 ratio of 0.7:1 and normal hlobrook T-cell antigen expression. 1% of lymphocytes (<0.1% of total events) are kappa-restricted B-cells expressing CD45 MOD, CD19 DIM, CD5 DIM, CD23 MOD and KAPPA DIM while negative for CD10, CD20 and CD38. The remainders are NK-cells. MYELOID CELLS: The myeloid population comprises 81% of the total events. No aberrant immunophenotypic expression is detected. MONOCYTES: The monocyte population comprises 4% of the total events. Monocytes are not increased. No aberrant immunophenotypic expression is detected. PLASMA CELLS: A significant plasma cell population is not detected in the neg-dimCD45/CD38 screening gate. ANTIBODIES USED: KAPPA, LAMBDA, CD20, CD10, CD19, CD23, CD38, CD16, CD56, CD8, CD5, CD2, CD4, CD7, CD3, CD14, CD33, CD13, HLADR, CD34, CD117, CD15, CD45: TOTAL ANTIBODIES USED: 23. DKW PATIENT NAME: NICOLE RAY PATHOLOGY DATE OF : 59 REPORT #: [id number] PHYSICIAN: BHAVESH BARAHONA PCP: CAMPBELL POLLARD MD REPORT IS CONFIDENTIAL AND NOT TO BE RELEASED WITHOUT AUTHORIZATION [facility] [address], [place] [address] Signed FINAL DIAGNOSIS PERFORMED BY: Live Wiseman MD, Mar 28 2022 11:40AM CYTOGENETICS: Chromosome analysis is pending, and the results will be reported in an addendum. FISH ANALYSIS: A FISH panel for CLL is pending, and the results will be reported in an addendum. GROSS DESCRIPTION: Two specimens are received in two containers, labeled "DF." A. The specimen, labeled "DF, core," is received in formalin and consists of two cylindrical bone core fragments measuring 0.2 cm in diameter and 0.9-1.2 cm in length. The specimen is entirely submitted in cassette (A1) following decalcification in Immunocal. Cold ischemic time: Cannot be determined because of lack of information. Approximate time in formalin: 6 hours. B. The specimen, labeled "DF, clot," is received in formalin and consists of thickened clot material measuring 2.5 x 2.4 x 0.3 cm in aggregate. The specimen is filtered and entirely submitted in cassette (B1). Bone marrow inventory also includes: Two peripheral smears, two heparin (one bone marrow, one peripheral blood). AT (under the direct supervision of a pathologist) The Gross Description was prepared using a voice recognition system. The report was reviewed for accuracy; however, sound-alike word errors, addition and/or deletions may occur. If there is any question about this report, please contact Client Services. ADDITIONAL NOTES: Immunohistochemical and/or in situ hybridization studies were performed on this case with the appropriate positive controls that react as expected. This test was developed and its performance characteristics determined by [facility]. It has not been cleared or approved by the U.S. Food and Drug Administration. The FDA has determined that such clearance or approval is not necessary. This test is used for clinical purposes. It should not be regarded as investigational or for research. [facility] is certified under the Clinical Laboratory Improvement Amendments of 1988 (CLIA) as qualified to perform high complexity clinical PATIENT NAME: NICOLE RAY PATHOLOGY DATE OF : 59 REPORT #: [id number] PHYSICIAN: BHAVESH PATHOLOGY PCP: CAMPBELL POLLARD MD REPORT IS CONFIDENTIAL AND NOT TO BE RELEASED WITHOUT AUTHORIZATION [facility] [address], [place] [address] Signed laboratory testing. This assay has not been validated for specimens that have been decalcified. In this case, certain antibodies were performed by both immunohistochemistry and flow cytometry analysis because flow cytometry analysis did not fully explain all the light microscopic findings. Immunohistochemistry aided in the analysis. Both methods are deemed medically necessary in this case. This test was developed and its performance characteristics determined by [facility]. It has not been cleared or approved by the US Food and Drug Administration. The FDA does not require this test to go through premarket FDA review. This test is used for clinical purposes. It should not be regarded as investigational or for research. This laboratory is certified under the Clinical Laboratory Improvement Amendments (CLIA) as qualified to perform high complexity clinical laboratory testing. PERFORMING LABORATORY: The technical component was performed by [facility], [facility] [place] [phone] (CLIA#: [id number]). Professional interpretation was performed by [facility] [place] [phone] (CLIA#: [id number]). A portion of the technical component was performed by [facility], [address] [place] [address] (CLIA# [id number]). A portion of the technical component was performed by [facility], [address] [place], [place] [address] [phone] (CLIA#: [id number]). Professional interpretation was performed by [facility], [address] [place] [phone] (CLIA#: [id number]). IMAGES: [id number]: [id number] A: [id number] Diagnostician: Live Wiseman MD Pathologist Electronically Signed 03/29/2022 Copies: PATIENT NAME: NICOLE RAY PATHOLOGY DATE OF : 59 REPORT #: [id number] PHYSICIAN: BHAVESH PATHOLOGY PCP: CAMPBELL POLLARD MD REPORT IS CONFIDENTIAL AND NOT TO BE RELEASED WITHOUT AUTHORIZATION [address] [address] Signed ~ PATIENT NAME: NICOLE RAY PATHOLOGY DATE OF : 59 REPORT #: [id number] PHYSICIAN: BHAVESH PATHOLOGY PCP: CAMPBELL POLLARD MD REPORT IS CONFIDENTIAL AND NOT TO BE RELEASED WITHOUT AUTHORIZATION
== END 2022-03-27 13:20 | disposition home or self-care (01) ==
LOC: DS 10:35 → OPS 10:35 → DS 12:00 → OPS 13:20
PROVIDERS: ATTEND Specialist
PROC: 079T3ZX Drainage of Bone Marrow, Percutaneous Approach, Diagnostic (ICD-10-PCS; 2022-03-27)
PROC: 07DR3ZX Extraction of Iliac Bone Marrow, Percutaneous Approach, Diagnostic (ICD-10-PCS; principal; 2022-03-27 12:00)
DX: C91.10 Chronic lymphocytic leukemia of B-cell type not having achieved remission (principal); D80.1 Nonfamilial hypogammaglobulinemia; I10 Essential (primary) hypertension; K21.9 Gastro-esophageal reflux disease without esophagitis; K58.9 Irritable bowel syndrome, unspecified; Z91.040 Latex allergy status; Z90.49 Acquired absence of other specified parts of digestive tract
CPT/HCPCS: 36415; 85025; J2704; J7121

== ENCOUNTER 2023-06-04 10:15 | Day surgery (SDC) | payer BC ==
[2023-06-03 09:38] VITALS: BP 147/85
[~2023-06-04] VITALS: Ht 188 cm; Wt 84.1 kg
[~2023-06-04 10:15] MED LIST changes: +BAYER CHEWABLE81 MG PO; +JOINT SUPPORT1 EACH PO; +KLOR-CON-EF 2525 MEQ PO; +LIPITOR40 MG PO; +TRIAMCINOLONE A15 GM
[2023-06-04 10:40] VITALS: BP 138/88
[2023-06-04 11:09] LABS: BASOPHILS 0.1 % (0-2); BASOPHILS, ABSOLUTE 0 %; EOSINOPHILS 0.1 % (0-6); EOSINOPHILS, ABSOLUTE 0; HEMATOCRIT 45.4 % (35.0-50.0); HEMOGLOBIN 15.4 g/dL (12.0-18.0); LYMPHOCYTES 17.1 % (24-44); LYMPHOCYTES, ABSOLUTE 1.1; MCH 27.7 (27-36); MCHC 33.9 g/dl (30-36); MCV 81.9 fl (81-99); MONOCYTES 8.7 % (0-12); MONOCYTES, ABSOLUTE 0.6; NEUTROPHILS, ABSOLUTE 4.7; PLATELET COUNT 146 K/uL (140-440); RBC 5.55 M/ul (4.3-5.7)
--- NOTE | 2023-06-04 12:32 | NUR ---
06/04/23 1232 Joycelyn Moya 1220-PATIENT ARRIVED TO PACU ON 2L NC RR EVEN. REACTIVE TO VERBAL STIMULI, SLEEPING. BILATERAL DRESSINGS CDI. IVF INFUSING. SR. PATIENT LAYING PRONE 1230-PATIENT AROUSING OPENING EYES DENIES PAIN OR NAUSEA. 2L NC RR EVEN. IVF INFSUING. PATIENT DENIES NEED TO MOVE AT THIS TIME AND DOZES BACK TO SLEEP
[2023-06-04 13:11] VITALS: BP 142/83
--- NOTE | 2023-06-04 21:09 | EKG ---
[facility] [address] [facility] [place], [place] [address] Signed Normal sinus rhythm Left axis deviation Right bundle branch block Abnormal ECG No previous ECGs available Confirmed by BRET ARMANDO MD ([id number]) on 06/04/2023 9:09:08 PM Electronically Signed By: BRET ARMANDO 06/04/232108 PATIENT NAME: NICOEL RAY MELL Electrocardiogram DATE OF : 59 PHYSICIAN: BRET ARMANDO REPORT #: [id number] REPORT IS CONFIDENTIAL AND NOT TO BE RELEASED WITHOUT AUTHORIZATION
== END 2023-06-04 13:25 | disposition home or self-care (01) ==
LOC: OPS 10:15 → DS 10:15 → OPS 12:00 → DS 12:00 → OPS 13:25
PROVIDERS: ATTEND Specialist
PROC: 07DR3ZX Extraction of Iliac Bone Marrow, Percutaneous Approach, Diagnostic (ICD-10-PCS; principal; 2023-06-04 12:00)
DX: C91.10 Chronic lymphocytic leukemia of B-cell type not having achieved remission (principal); I10 Essential (primary) hypertension; Z79.899 Other long term (current) drug therapy
CPT/HCPCS: 01112; 36415; 85025; 93005; 93010; J2704; J7121

== ENCOUNTER 2024-03-18 20:46 | Emergency (ER) | payer BC ==
[~2024-03-18] VITALS: Ht 188 cm; Wt 85.5 kg
[2024-03-18 21:38] LABS: BASOPHILS 0.1 % (0-2); EOSINOPHILS 0.2 % (0-6); HEMATOCRIT 46.7 % (35.0-50.0); HEMOGLOBIN 16.2 g/dL (12.0-18.0); LYMPHOCYTES 10.6 % (24-44); MCH 28.5 (27-36); MCHC 34.6 g/dl (30-36); MCV 82.1 fl (81-99); MONOCYTES 12.3 % (0-12); NEUTROPHILS 76.8 % (39-80); PLATELET COUNT 119 K/uL (140-440); RBC 5.69 M/ul (4.3-5.7)
[2024-03-18 21:57] LABS: ALBUMIN 3.4 g/dL (3.4-5.0); ALBUMIN/GLOBULIN RATIO 1.21 (1.1-2.4); ANION GAP 14.4 (7-21); BILIRUBIN, TOTAL 2.1 ng/dL (0.2-1.0); BUN/CREATININE RATIO 11.92 (6.0-28.6); CALCIUM 8.3 mg/dL (8.5-10.1); CREATININE, SERUM 1.09 mg/dL (0.70-1.30); POTASSIUM 3.4 mmol/L (3.5-5.1); PROTEIN, TOTAL 6.2 g/dL (6.4-8.2)
[2024-03-18 22:07] LABS: INFLUENZA B NAA NEGATIVE (NEGATIVE); RESPIRATORY SYNCYTIAL VIR NAA NEGATIVE (NEGATIVE)
[2024-03-18 22:37] LABS: BILIRUBIN, URINE NEGATIVE (negative); BLOOD/HGB, URINE MODERATE (Negative); KETONE, URINE NEGATIVE (Negative); LEUK ESTERASE, URINE NEGATIVE (negative); NITRITE, URINE NEGATIVE (negative)
[2024-03-18 22:42] LABS: BACTERIA, URINE RARE /hpf (negative); CASTS, URINE NONE SEEN \\lpf; CRYSTALS, URINE NONE SEEN (0-1+); EPITHELIAL CELLS, URINE SQUAMOUS 1+ /lpf (0-1+); REFLEX CULTURE, URINE No (No); WHITE BLOOD CELLS, URINE 0-1 /HPF (0-5)
[2024-03-18] MEDS ORDERED: ACETAMINOPHEN 500 MG TAB PO ONE (23:30)
[2024-03-18 23:31] VITALS: BP 148/82
== END 2024-03-18 23:32 | disposition home or self-care (01) ==
LOC: ED 20:46
PROVIDERS: Internal Medicine
DX: B34.9 Viral infection, unspecified (principal); E80.7 Disorder of bilirubin metabolism, unspecified; C91.10 Chronic lymphocytic leukemia of B-cell type not having achieved remission; Z79.82 Long term (current) use of aspirin; Z79.899 Other long term (current) drug therapy; Z91.040 Latex allergy status
CPT/HCPCS: 36415; 71045; 80053; 81001; 85025; 87502; 99283-25; A9270; U0002